=== PATIENT | female | born 1985 | race Caucasian/White ===

== ENCOUNTER → 2018-11-28 13:24 | Outpatient (CLI) | payer OTHER, SELFPAY ==
[2018-11-28 14:31] LABS: Basophils % 0.4 % (0.1-2.0); Eosinophils # 0.1 K/mm3 (0.0-0.4); Eosinophils % 1.3 % (0.1-12.0); Hematocrit 39.3 % (37.0-47.0); Lymphocytes # 2.6 K/mm3 (0.7-4.5); Lymphocytes % 25.9 % (10-50); Mean Corpuscular HGB Conc 30.5 g/dL (31.8-35.4); Mean Corpuscular Hemoglobin 25.5 pg (27.0-31.2); Mean Corpuscular Volume 83.7 fl (81-99); Mean Platelet Volume 9.4 fl (7.4-10.4); Monocytes # 0.5 K/mm3 (0.1-1.0); Monocytes % 5.3 % (1.7-9.3); Neutrophils # 6.8 K/mm3 (1.8-7.8); Neutrophils % 67.1 % (37.0-80.0); Platelet Count 364 K/mm3 (142-424); Red Blood Count 4.69 M/mm3 (4.20-5.40); Red Cell Distribution Width 15.2 % (11.5-17.5); White Blood Count 10.2 K/mm3 (4.8-10.8)
[2018-11-28 14:38] LABS: Alanine Aminotransferase 16 U/L (12-78); Albumin Level 3.5 gm/dL (3.4-5.0); Albumin/Globulin Ratio 0.9 (1.1-1.8); Alkaline Phosphatase 61 U/L (46-116); Anion Gap 13.6 mEq/L (5-15); Aspartate Amino Transferase 9 U/L (15-37); Bilirubin,Total 0.4 mg/dL (0.2-1.0); Blood Urea Nitrogen 12 mg/dL (7-18); Calcium 8.9 mg/dL (8.5-10.1); Carbon Dioxide 26 mmol/L (21.0-32.0); Chloride 104 mmol/L (98-107); Cholesterol 147 mg/dL (140-200); Estimated Glomerular Filt Rate 97 ml/min (>60); Free T4 (Free Thyroxine) 0.81 ng/dl (0.76-1.46); GFR (African American) 117 ML/MIN (>60); Glucose 85 mg/dL (74-106); HDL Cholesterol 49 mg/dL (29-89); LDL Cholesterol 70 mg/dL (0-130); Potassium 4.6 mmoL/L (3.5-5.1); Sodium 139 mmol/L (136-145); Thyroid Stimulating Hormone 3.21 uIU/ml (0.358-3.740); Total Protein,Serum 7.5 gm/dL (6.4-8.2); Triglycerides 140 mg/dL (30-200); VLDL Cholesterol 28 mg/dL (0-40)
== END ==
PROVIDERS: Visit Provider Emergency Medicine
DX: E66.9 Obesity, unspecified (principal); E04.9 Nontoxic goiter, unspecified
CPT/HCPCS: 80053; 80061; 84439; 84443; 85025

== ENCOUNTER → 2018-12-05 13:39 | Outpatient (CLI) | payer OTHER, SELFPAY ==
--- NOTE | 2018-12-05 13:56 | US_ITS ---
PROCEDURE: US THYROID CLINICAL INDICATION: enlarged thyroid Enlarged thyroid gland, weight gain, fatigue COMPARISON: No exams were available for comparison FINDINGS: The isthmus is thickened at 13 mm. There is diffuse heterogeneous enlargement of the thyroid gland. The right lobe is 6.7 x 4.2 x 2.5 cm. A hyperechoic nodules present in the mid aspect of the right lobe at 4 mm. And 11 mm isoechoic nodules present in the lower pole. Left lobe is 6.6 x 2.7 x 2.8 cm. A slightly hyperechoic nodules present in the upper pole at 14 mm. An additional slightly hyperechoic well-circumscribed nodules present in the midpole at 15 mm. Increased blood flow is noted within the thyroid gland. IMPRESSION: Thyromegaly with bilateral thyroid nodules as described above which are low level of suspicion for malignancy. The largest nodule 15 mm. Suggest 6 month follow-up. Dictated by: Evan Mendoza MD 12/06/2018 09:58 Electronically signed by Evan Mendoza MD in [place] 12/06/2018 09:58
== END ==
PROVIDERS: PCP Emergency Medicine; Visit Provider Emergency Medicine
DX: E04.9 Nontoxic goiter, unspecified (principal)
CPT/HCPCS: 76536

== ENCOUNTER → 2019-06-26 13:02 | Outpatient (CLI) | payer BC, SELFPAY ==
--- NOTE | 2019-06-26 13:03 | US_ITS ---
PROCEDURE: US THYROID CLINICAL INDICATION: 6 mth f/u Follow-up thyroid nodules COMPARISON: US THYROID from 12/05/2018 FINDINGS: Right lobe: 8.8 x 2.7 x 4.2 cm. Diffuse heterogeneous echogenicity with multinodular configuration. The nodules are coalescent and difficult to measure individually. At least 1 nodule which is hyperechoic measures 1.6 by 0.9 cm probably not significantly changed previously at 1.5 x 0.9 cm. Left lobe: 7 x 3 x 3.5 cm. Heterogeneous echogenicity with multinodular configuration with coalescent nodules difficult to measure. At least 1 hyperechoic nodule is noted measuring 1.7 x 1.3 cm previously 1.6 x 1.2 cm probably not significantly changed. Isthmus: The isthmus is thickened with 2 nodules at 7 and 6 mm. The isthmus measures up to 16 mm in thickness Additional findings: IMPRESSION: Multinodular goiter as detailed above probably overall not significantly changed. Continued follow-up suggested Dictated by: Evan Mendoza MD 06/26/2019 15:12 Electronically signed by Evan eMndoza MD in [place] 06/26/2019 15:12
== END ==
PROVIDERS: PCP Emergency Medicine; Visit Provider Emergency Medicine
DX: E04.1 Nontoxic single thyroid nodule (principal)
CPT/HCPCS: 76536

== ENCOUNTER → 2019-07-30 17:06 | Outpatient (CLI) | payer BC, MEDICAID, SELFPAY ==
[2019-07-30 17:51] LABS: Basophils % 0.3 % (0.1-2.0); Eosinophils # 0.1 K/mm3 (0.0-0.4); Eosinophils % 0.5 % (0.1-12.0); Hematocrit 37.2 % (37.0-47.0); Hemoglobin 11.9 g/dL (12.2-16.2); Lymphocytes # 2.1 K/mm3 (0.7-4.5); Lymphocytes % 18.6 % (10-50); Mean Corpuscular HGB Conc 31.9 g/dL (31.8-35.4); Mean Corpuscular Hemoglobin 25.9 pg (27.0-31.2); Mean Corpuscular Volume 81.2 fl (81-99); Mean Platelet Volume 7.5 fl (7.4-10.4); Monocytes # 0.4 K/mm3 (0.1-1.0); Monocytes % 3.6 % (1.7-9.3); Neutrophils # 8.8 K/mm3 (1.8-7.8); Neutrophils % 76.9 % (37.0-80.0); Platelet Count 364 K/mm3 (142-424); Red Blood Count 4.58 M/mm3 (4.20-5.40); Red Cell Distribution Width 15.3 % (11.5-17.5); White Blood Count 11.5 K/mm3 (4.8-10.8)
[2019-07-30 18:55] LABS: Amphetamine/Metha Screen,Urine Negative ng/ml (<1000)
[2019-07-30 18:56] LABS: Barbiturates Screen,Urine Negative ng/ml (<200); Benzodiazepines Screen,Urine Negative ng/ml (<200)
[2019-07-30 18:57] LABS: Cannabinoid Screen,Urine Negative ng/ml (<50)
[2019-07-30 18:58] LABS: Cocaine Screen,Urine Negative ng/ml (<300); Methadone Screen,Urine Negative ng/ml (<300)
[2019-07-30 18:59] LABS: Opiate Screen,Urine Negative ng/ml (<300)
[2019-07-30 19:00] LABS: Phencyclidine Screen,Urine Negative ng/ml (<25)
[2019-07-30 20:08] LABS: Thyroid Stimulating Hormone 3.83 uIU/mL (0.465-4.68)
[2019-08-01 08:42] LABS: Hepatitis B Surface Antigen Negative (Negative); Hepatitis C Antibody 0.1 s/co ratio (0.0-0.9); Rapid Plasma Reagin Ab Titer Non Reactive (NonRea<1:1); Rubella Antibodies, IgG 2.77 index (Immune >0.99)
[2019-08-01 10:21] LABS: HIV Screen 4th Generation wRfx Non Reactive (Non Reactive)
== END ==
PROVIDERS: Visit Provider Obstetrics & Gynecology
DX: Z34.90 Encounter for supervision of normal pregnancy, unspecified, unspecified trimester (principal)
CPT/HCPCS: 36415; 80305; 84443; 85025; 86592; 86703; 86762; 86850; 87340; 87380; G0432

== ENCOUNTER → 2019-07-31 14:25 | Outpatient (CLI) | payer BC, MEDICAID, SELFPAY ==
[2019-07-31 10:28] LABS: HCG,Quantitative 19532 mIU/ml (0-5.42)
[2019-07-31 14:44] LABS: Barbiturates Screen,Urine Negative ng/ml (<200)
[2019-07-31 14:45] LABS: Benzodiazepines Screen,Urine Negative ng/ml (<200)
[2019-07-31 14:46] LABS: Amphetamine/Metha Screen,Urine Negative ng/ml (<1000); Methadone Screen,Urine Negative ng/ml (<300)
[2019-07-31 14:47] LABS: Cannabinoid Screen,Urine Negative ng/ml (<50)
[2019-07-31 14:48] LABS: Cocaine Screen,Urine Negative ng/ml (<300); Opiate Screen,Urine Negative ng/ml (<300)
[2019-07-31 14:49] LABS: Phencyclidine Screen,Urine Negative ng/ml (<25)
== END ==
PROVIDERS: Visit Provider Obstetrics & Gynecology
DX: Z34.90 Encounter for supervision of normal pregnancy, unspecified, unspecified trimester (principal)
CPT/HCPCS: 80305; 84702

== ENCOUNTER → 2019-08-03 08:43 | Outpatient (CLI) | payer BC, MEDICAID, SELFPAY ==
--- NOTE | 2019-08-03 08:44 | US_ITS ---
PROCEDURE: US OB <= 14 WEEKS FETUS CLINICAL INDICATION: size and dates COMPARISON: No exams were available for comparison FINDINGS: An intrauterine gestational sac is present with a pole with a crown-rump length of 0.53cm correlating to gestational age of 6weeks 3days. heart tones are present with an FHR of 134bpm. Yolk sac is noted. 2 cm left ovarian cyst suggesting corpus luteum cyst IMPRESSION: Live IUP at 6 weeks 3 days Estimated due date by Ultrasound is 03/25/2020 Dictated by: Evan Mendoza MD 08/03/2019 10:04 Electronically signed by Evan Mendoza MD in [place] 08/03/2019 10:04
== END ==
PROVIDERS: PCP Emergency Medicine; Visit Provider Obstetrics & Gynecology
DX: Z34.90 Encounter for supervision of normal pregnancy, unspecified, unspecified trimester (principal)
CPT/HCPCS: 76801

== ENCOUNTER → 2019-11-06 12:41 | Outpatient (CLI) | payer MEDICAID, SELFPAY ==
--- NOTE | 2019-11-06 12:42 | US_ITS ---
PROCEDURE: US OB /MATERNAL DETAIL CLINICAL INDICATION: US OB Complete Anatomy exam COMPARISON: US US OB <= 14 WEEKS FETUS from 08/03/2019 FINDINGS: There is a single live fetus present which is in breech presentation. Cervix is closed measuring 5.7 cm transabdominal. The placenta is anterior and grade 1. Complete survey performed and was unremarkable on the submitted images as in PACS. No discrete anomalies identified on survey imaging by technologist. Active fetus. Three-vessel cord with satisfactory umbilical cord insertion. 4- chamber heart noted. Nonspecific hyperechoic focus noted within left ventricle Survey of brain & ventricles Unremarkable. Face and neck survey unremarkable. Diaphragm and chest views unremarkable. Abdomen: Both kidneys noted and unremarkable. Stomach noted and satisfactory. Spine: Survey of the spine satisfactory with no anomalies identified nor imaged. Both arms and legs noted. Amniotic Fluid: Adequate. Maternal adnexa: No significant findings. Measurements: Average ultrasound age 20weeks. Gestational Age 20 weeks Estimated due date by ultrasound age 0103/25/2020. Estimated weight 322g BPD = 20weeks OFD = 20weeks 6days HC = 19weeks 6days AC = 20weeks FL = 20weeks Growth Percentile= 41Percent% Heart Rate = 161bpm Cerebellum = 20weeks Humerus = 20weeks 1day HC/AC is 1.18 CI is 0.74 FL/BPD is 0.69 FL/AC is 0.22 IMPRESSION: Live IUP in breech presentation with an average ultrasound age of 20 weeks. All parameters correlate. Echogenic intracardiac focus which may represent a normal variant. Follow-up may confirm resolution. Dictated by: Evan Mendoza MD 11/08/2019 08:34 Evan Mendoza MD in [place] 11/08/2019 08:34
== END ==
PROVIDERS: PCP Emergency Medicine; Visit Provider Obstetrics & Gynecology
DX: Z36.0 Encounter for antenatal screening for chromosomal anomalies (principal)
CPT/HCPCS: 76811

== ENCOUNTER 2019-12-09 18:10 | Emergency (ER) | payer MEDICAID, SELFPAY ==
[2019-12-09 18:11] VITALS: BP 133/72; PULSE 85; RESP 18; TEMP 36.6; O2SAT 97; BMI 36.0
--- NOTE | 2019-12-09 18:37 | PC.NURSE ---
heart tones was 153
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
--- NOTE | 2019-12-09 19:13 | PC.NURSE ---
Called report to Nelida in OB
[2019-12-09 19:14] VITALS: BP 112/75; PULSE 65; RESP 15; TEMP 36.7; O2SAT 98
== END 2019-12-09 19:23 | disposition still patient (30) ==
PROVIDERS: Emergency Provider Emergency Medicine; PCP Emergency Medicine
DX: R10.30 Lower abdominal pain, unspecified (principal); Z3A.24 24 weeks gestation of pregnancy; V43.52XA Car driver injured in collision with other type car in traffic accident, initial encounter; Y92.414 Local residential or business street as the place of occurrence of the external cause; Z88.0 Allergy status to penicillin
CPT/HCPCS: 99281; 99282

== ENCOUNTER 2019-12-09 19:20 | Outpatient (CLI) | payer MEDICAID, SELFPAY ==
[2019-12-09 19:29] VITALS: BMI 37.4
[2019-12-09 19:49] VITALS: BP 131/67; PULSE 78; RESP 18; O2SAT 98; BMI 37.4
[2019-12-09 19:52] LABS: Microscopic, Urine URINE MICROSCOPIC (MICROSCOPIC)
[2019-12-09 19:54] LABS: Appearance,Urine CLEAR (Clear); Bilirubin,Urine Negative (Negative); Blood, Urine Negative (Negative); Color,Urine YELLOW (Yellow); Glucose,Urine (UA) Negative (Negative); Ketones,Urine Negative (Negative); Leukocyte Esterase,Urine Negative (Negative); Nitrate,Urine Negative (Negative); Protein,Urine Negative (Negative); Specific Gravity, Urine <= 1.005 (1.005-1.030); Urobilinogen,Urine 0.2 EU/dl (0.2)
[2019-12-09 20:05] LABS: Barbiturates Screen,Urine Negative ng/ml (<200); Benzodiazepines Screen,Urine Negative ng/ml (<200)
[2019-12-09 20:06] LABS: Amphetamine/Metha Screen,Urine Negative ng/ml (<1000)
[2019-12-09 20:07] LABS: Bacteria,Urine Trace /lpf; Cannabinoid Screen,Urine Negative ng/ml (<50); Methadone Screen,Urine Negative ng/ml (<300)
[2019-12-09 20:08] LABS: Cocaine Screen,Urine Negative ng/ml (<300)
[2019-12-09 20:09] LABS: Opiate Screen,Urine Negative ng/ml (<300); Phencyclidine Screen,Urine Negative ng/ml (<25)
== END 2019-12-09 22:10 | disposition home or self-care (01) ==
LOC: OBOUT 19:22 → OB 19:22
PROVIDERS: PCP Emergency Medicine; Visit Provider Nurse Practitioner Obstetrics & Gynecology
DX: O47.02 False labor before 37 completed weeks of gestation, second trimester (principal); Z3A.24 24 weeks gestation of pregnancy; V89.2XXA Person injured in unspecified motor-vehicle accident, traffic, initial encounter
CPT/HCPCS: 59025; 80305; 81001; 87086; G0463

== ENCOUNTER → 2019-12-14 07:37 | Outpatient (CLI) | payer MEDICAID, SELFPAY ==
[2019-12-14 09:08] LABS: Glucose,Fasting 104 mg/dl (74-100)
[2019-12-14 09:35] LABS: Glucose 1 Hour 180 mg/dL (74-100)
== END ==
PROVIDERS: Visit Provider Obstetrics & Gynecology
DX: Z34.90 Encounter for supervision of normal pregnancy, unspecified, unspecified trimester (principal)
CPT/HCPCS: 36415; 82951

== ENCOUNTER → 2019-12-22 07:32 | Outpatient (CLI) | payer MEDICAID, SELFPAY ==
[2019-12-22 08:20] LABS: Glucose,Fasting 101 mg/dl (74-100)
[2019-12-22 09:46] LABS: Glucose 1 Hour 128 mg/dL (74-100)
[2019-12-22 10:36] LABS: Glucose 2 Hour 98 mg/dL (74-100)
[2019-12-22 11:54] LABS: Glucose 3 Hour 72 mg/dL (74-100)
== END ==
PROVIDERS: Visit Provider Obstetrics & Gynecology
DX: Z34.90 Encounter for supervision of normal pregnancy, unspecified, unspecified trimester (principal)
CPT/HCPCS: 36415; 82951

== ENCOUNTER → 2020-01-01 12:52 | Outpatient (CLI) | payer MEDICAID, SELFPAY ==
--- NOTE | 2020-01-01 12:52 | US_ITS ---
PROCEDURE: US OB FOLLOW UP CLINICAL INDICATION: US OB f/u- echogenic cardiac focus COMPARISON: US US OB /MATERNAL DETAIL from 11/06/2019 FINDINGS: Single live fetus is present in cephalic presentation. heart and body motion noted. Average ultrasound age is 28 weeks 4 days. BPD 29 weeks 0 days, OFD 27 weeks 6 days, HC 28 weeks 0 days, AC 28 weeks 2 days, FL 28 weeks 4 days. Heart rate is 155 beats per minute. Placenta is anterior. Nonspecific echogenic cardiac focus once again noted. No obvious anomalies. IMPRESSION: Live IUP at 28 weeks 4 days. All parameters correlate. No change nonspecific echogenic cardiac focus. Dictated by: Evan Mendoza MD 01/01/2020 17:38 Evan Mendoza MD in [place] 01/01/2020 17:38
== END ==
PROVIDERS: PCP Emergency Medicine; Visit Provider Obstetrics & Gynecology
DX: O35.8XX0 Maternal care for other (suspected) fetal abnormality and damage, not applicable or unspecified (principal)
CPT/HCPCS: 76816

== ENCOUNTER 2020-01-05 10:22 | Outpatient (CLI) | payer MEDICAID, SELFPAY ==
[2020-01-05 12:05] VITALS: BP 116/78; PULSE 96; RESP 20; TEMP 36.4; O2SAT 96
== END 2020-01-05 12:25 | disposition home or self-care (01) ==
PROVIDERS: Visit Provider Obstetrics & Gynecology
DX: Z34.90 Encounter for supervision of normal pregnancy, unspecified, unspecified trimester (principal)
CPT/HCPCS: 36415; 96372; J2790

== ENCOUNTER 2020-01-26 10:40 | Outpatient (CLI) | payer MEDICAID, SELFPAY ==
[2020-01-26 10:40] VITALS: BP 120/71; PULSE 84; RESP 20; TEMP 36.8; O2SAT 95; BMI 36.9
[2020-01-26 11:08] VITALS: BMI 36.9
[2020-01-26 11:27] LABS: Eosinophils # 0.1 K/mm3 (0.0-0.4); Eosinophils % 0.4 % (0.1-12.0); Hematocrit 35.8 % (37.0-47.0); Hemoglobin 11.5 g/dL (12.2-16.2); Lymphocytes # 1.9 K/mm3 (0.7-4.5); Lymphocytes % 13.2 % (10-50); Mean Corpuscular HGB Conc 32.2 g/dL (31.8-35.4); Mean Corpuscular Hemoglobin 27.3 pg (27.0-31.2); Mean Corpuscular Volume 84.6 fl (81-99); Mean Platelet Volume 8.1 fl (7.4-10.4); Monocytes # 0.5 K/mm3 (0.1-1.0); Monocytes % 3.7 % (1.7-9.3); Neutrophils % 82.7 % (37.0-80.0); Platelet Count 288 K/mm3 (142-424); Red Blood Count 4.23 M/mm3 (4.20-5.40); Red Cell Distribution Width 15.6 % (11.5-17.5); White Blood Count 14.5 K/mm3 (4.8-10.8)
[2020-01-26 11:30] VITALS: BP 131/69; PULSE 88; RESP 18; O2SAT 95
[2020-01-26 11:36] LABS: Chloride 103 mmol/L (98-107); Potassium 3.9 mmoL/L (3.5-5.1); Sodium 131 mmol/L (136-145)
[2020-01-26 11:38] LABS: Alanine Aminotransferase 15 U/L (12-78); Aspartate Amino Transferase 18 U/L (14-36); Blood Urea Nitrogen 11 mg/dl (7-17); Creatinine Clearance Estimated 225 mL/min (50-200); Estimated Glomerular Filt Rate 115 ml/min (>60); GFR (African American) 139 ML/MIN (>60)
[2020-01-26 11:39] LABS: Albumin Level 3.1 g/dl (3.5-5.0); Alkaline Phosphatase 106 U/L (38-126); Anion Gap 11.9 mEq/L (5-15); Bilirubin,Total 0.3 mg/dl (0.2-1.3); Calcium 8.6 mg/dl (8.4-10.2); Carbon Dioxide 20 mmol/L (22.0-30.0); Glucose 127 mg/dl (74-100); Total Protein,Serum 6.1 g/dl (6.3-8.2)
[2020-01-26 11:46] VITALS: BP 123/69; PULSE 82; RESP 18; O2SAT 96
== END 2020-01-26 12:02 | disposition home or self-care (01) ==
LOC: OBOUT 10:42 → OB 10:43 → OBOUT 10:45 → OB 11:05
PROVIDERS: PCP Obstetrics & Gynecology; Visit Provider Obstetrics & Gynecology
DX: O26.893 Other specified pregnancy related conditions, third trimester (principal); Z3A.31 31 weeks gestation of pregnancy; R42 Dizziness and giddiness; R55 Syncope and collapse
CPT/HCPCS: 59025; 80053; 85025; 96365; G0463

== ENCOUNTER 2020-02-04 16:29 | Outpatient (CLI) | payer MEDICAID, SELFPAY ==
[2020-02-04 16:41] VITALS: BMI 40.4
[2020-02-04 17:31] LABS: Appearance,Urine CLEAR (Clear); Bilirubin,Urine Negative (Negative); Blood, Urine Negative (Negative); Color,Urine YELLOW (Yellow); Glucose,Urine (UA) Negative (Negative); Ketones,Urine TRACE (Negative); Leukocyte Esterase,Urine TRACE (Negative); Microscopic, Urine URINE MICROSCOPIC (MICROSCOPIC); Nitrate,Urine Negative (Negative); Protein,Urine Negative (Negative); Specific Gravity, Urine 1.025 (1.005-1.030); Urobilinogen,Urine 0.2 EU/dl (0.2)
[2020-02-04 17:36] LABS: Chloride 103 mmol/L (98-107); Sodium 132 mmol/L (136-145)
[2020-02-04 17:37] VITALS: BMI 37.4
[2020-02-04 17:39] LABS: Alanine Aminotransferase 12 U/L (12-78); Albumin Level 3.3 g/dl (3.5-5.0); Albumin/Globulin Ratio 1.1 (1.1-1.8); Alkaline Phosphatase 121 U/L (38-126); Aspartate Amino Transferase 18 U/L (14-36); Bilirubin,Total 0.3 mg/dl (0.2-1.3); Blood Urea Nitrogen 13 mg/dl (7-17); Calcium 8.8 mg/dl (8.4-10.2); Carbon Dioxide 22 mmol/L (22.0-30.0); Creatinine Clearance Estimated 278 mL/min (50-200); Estimated Glomerular Filt Rate 142 ml/min (>60); GFR (African American) 172 ML/MIN (>60); Glucose 89 mg/dl (74-100); Total Protein,Serum 6.3 g/dl (6.3-8.2)
[2020-02-04 17:43] VITALS: BP 163/95; PULSE 78; RESP 20; TEMP 36.8
[2020-02-04 17:43] LABS: Amphetamine/Metha Screen,Urine Negative ng/ml (<1000); Benzodiazepines Screen,Urine Negative ng/ml (<200)
[2020-02-04 17:44] LABS: Basophils % 0.1 % (0.1-2.0); Eosinophils % 0.3 % (0.1-12.0); Hematocrit 32.8 % (37.0-47.0); Hemoglobin 10.6 g/dL (12.2-16.2); Lymphocytes # 1.9 K/mm3 (0.7-4.5); Mean Corpuscular HGB Conc 32.3 g/dL (31.8-35.4); Mean Corpuscular Volume 83.5 fl (81-99); Mean Platelet Volume 8.6 fl (7.4-10.4); Monocytes # 0.6 K/mm3 (0.1-1.0); Monocytes % 3.8 % (1.7-9.3); Neutrophils # 12.9 K/mm3 (1.8-7.8); Neutrophils % 83.9 % (37.0-80.0); Platelet Count 272 K/mm3 (142-424); Red Blood Count 3.93 M/mm3 (4.20-5.40); Red Cell Distribution Width 15.6 % (11.5-17.5); White Blood Count 15.4 K/mm3 (4.8-10.8)
[2020-02-04 17:44] LABS: Barbiturates Screen,Urine Negative ng/ml (<200)
[2020-02-04 17:45] LABS: Cannabinoid Screen,Urine Negative ng/ml (<50)
[2020-02-04 17:46] LABS: Amorphous Sediment,Urine 1+ /lpf; Bacteria,Urine 1+ /lpf; Cocaine Screen,Urine Negative ng/ml (<300); Methadone Screen,Urine Negative ng/ml (<300)
[2020-02-04 17:47] LABS: Opiate Screen,Urine Negative ng/ml (<300)
[2020-02-04 17:47] LABS: MANUAL DIFFERENTIAL MANUAL DIFFERENTIAL (MANUAL DIFF)
[2020-02-04 17:48] LABS: Phencyclidine Screen,Urine Negative ng/ml (<25)
[2020-02-04 17:55] LABS: Coronavirus 19 IgG Antibody Negative (Negative); Coronavirus 19 IgM Antibody Negative (Negative)
[2020-02-04 18:07] LABS: Eosinophils % 2 % (0-3); Lymphocytes % 19 % (10-50); Monocytes % 3 % (2-9); Neutrophils % 76 % (42-76); Platelet Estimate Normal; RBC Morphology Normal; Total Cells Counted 100
[2020-02-04 18:23] LABS: Fetal Fibronectin (Rapid) Positive (Negative)
== END 2020-02-04 19:42 | disposition home or self-care (01) ==
LOC: OBOUT 16:31 → OB 16:32
PROVIDERS: PCP Obstetrics & Gynecology; Visit Provider Obstetrics & Gynecology
DX: Z03.818 Encounter for observation for suspected exposure to other biological agents ruled out; O21.2 Late vomiting of pregnancy; Z3A.32 32 weeks gestation of pregnancy; R19.7 Diarrhea, unspecified; O60.03 Preterm labor without delivery, third trimester
CPT/HCPCS: 36415; 59025; 80053; 80305; 81001; 82731; 85007; 85025; 86328; 87086; 96365; 96366; G0463; J2405

== ENCOUNTER 2020-03-01 06:05 | Outpatient (CLI) | payer MEDICAID, SELFPAY ==
[2020-03-01 06:11] VITALS: BMI 38.5
[2020-03-01 06:14] VITALS: BP 140/87; PULSE 89; RESP 18; TEMP 36.7; O2SAT 95; BMI 38.5
[2020-03-01 06:52] LABS: Amphetamine/Metha Screen,Urine Negative ng/ml (<1000)
[2020-03-01 06:53] LABS: Barbiturates Screen,Urine Negative ng/ml (<200); Benzodiazepines Screen,Urine Negative ng/ml (<200)
[2020-03-01 06:54] LABS: Cannabinoid Screen,Urine Negative ng/ml (<50); Cocaine Screen,Urine Negative ng/ml (<300)
[2020-03-01 06:55] LABS: Methadone Screen,Urine Negative ng/ml (<300)
[2020-03-01 06:57] LABS: Opiate Screen,Urine Negative ng/ml (<300)
[2020-03-01 06:58] LABS: Phencyclidine Screen,Urine Negative ng/ml (<25)
== END 2020-03-01 08:13 | disposition home or self-care (01) ==
LOC: OBOUT 06:07 → OB 06:11
PROVIDERS: PCP Emergency Medicine; Visit Provider Obstetrics & Gynecology
DX: O47.03 False labor before 37 completed weeks of gestation, third trimester (principal); Z3A.36 36 weeks gestation of pregnancy
CPT/HCPCS: 59025; 80305; 96360; 96365

== ENCOUNTER → 2020-03-01 12:33 | Outpatient (CLI) | payer MEDICAID, SELFPAY | PROVIDERS: Visit Provider Obstetrics & Gynecology | DX: Z34.90 Encounter for supervision of normal pregnancy, unspecified, unspecified trimester (principal) | CPT/HCPCS: 86403 ==

== ENCOUNTER 2020-03-07 21:02 | Outpatient (CLI) | payer MEDICAID, SELFPAY ==
[2020-03-07 21:08] VITALS: BP 129/79; PULSE 90; RESP 18; TEMP 36.8; O2SAT 96
[2020-03-07 21:15] VITALS: BMI 39.4
[2020-03-07 21:31] LABS: Microscopic, Urine URINE MICROSCOPIC (MICROSCOPIC)
[2020-03-07 21:32] VITALS: BP 129/79; PULSE 90; RESP 18; TEMP 36.8; O2SAT 96; BMI 39.4
[2020-03-07 21:40] LABS: Appearance,Urine CLEAR (Clear); Bilirubin,Urine Negative (Negative); Blood, Urine Negative (Negative); Color,Urine YELLOW (Yellow); Glucose,Urine (UA) Negative (Negative); Ketones,Urine Negative (Negative); Leukocyte Esterase,Urine Negative (Negative); Nitrate,Urine Negative (Negative); Protein,Urine Negative (Negative); Urobilinogen,Urine 0.2 EU/dl (0.2)
[2020-03-07 21:50] LABS: Fetal Membrane Rupture (Rapid) Negative (Negative)
[2020-03-07 21:51] LABS: Bacteria,Urine Trace /lpf; WBC,Urine Occasional #/hpf (0-3)
[2020-03-07 21:53] LABS: Barbiturates Screen,Urine Negative ng/ml (<200)
[2020-03-07 21:54] LABS: Benzodiazepines Screen,Urine Negative ng/ml (<200); Cannabinoid Screen,Urine Negative ng/ml (<50)
[2020-03-07 21:55] LABS: Cocaine Screen,Urine Negative ng/ml (<300); Methadone Screen,Urine Negative ng/ml (<300)
[2020-03-07 21:56] LABS: Opiate Screen,Urine Negative ng/ml (<300)
[2020-03-07 21:57] LABS: Phencyclidine Screen,Urine Negative ng/ml (<25)
[2020-03-07 22:01] LABS: Amphetamine/Metha Screen,Urine Negative ng/ml (<1000)
== END 2020-03-07 21:54 | disposition home or self-care (01) ==
LOC: OBOUT 21:03 → OB 21:06
PROVIDERS: Nurse Practitioner Obstetrics & Gynecology; PCP Emergency Medicine; Visit Provider Obstetrics & Gynecology
DX: O60.03 Preterm labor without delivery, third trimester (principal); Z3A.37 37 weeks gestation of pregnancy
CPT/HCPCS: 59025; 80305; 81001; 84112; G0463

== ENCOUNTER 2020-03-09 00:04 | Outpatient (CLI) | payer MEDICAID, SELFPAY ==
[2020-03-09 00:20] VITALS: BP 142/91; PULSE 80; RESP 18; TEMP 36.9; O2SAT 97; BMI 39.4
[2020-03-09 00:35] LABS: Microscopic, Urine URINE MICROSCOPIC (MICROSCOPIC)
[2020-03-09 00:43] LABS: Appearance,Urine CLEAR (Clear); Bilirubin,Urine Negative (Negative); Blood, Urine Negative (Negative); Color,Urine YELLOW (Yellow); Glucose,Urine (UA) Negative (Negative); Ketones,Urine Negative (Negative); Leukocyte Esterase,Urine Negative (Negative); Nitrate,Urine Negative (Negative); Protein,Urine Negative (Negative); Specific Gravity, Urine <= 1.005 (1.005-1.030); Urobilinogen,Urine 0.2 EU/dl (0.2)
[2020-03-09 01:00] LABS: Bacteria,Urine Trace /lpf; WBC,Urine Occasional #/hpf (0-3)
[2020-03-09 01:31] LABS: Benzodiazepines Screen,Urine Negative ng/ml (<200)
[2020-03-09 01:32] LABS: Amphetamine/Metha Screen,Urine Negative ng/ml (<1000); Barbiturates Screen,Urine Negative ng/ml (<200)
[2020-03-09 01:33] LABS: Cannabinoid Screen,Urine Negative ng/ml (<50)
[2020-03-09 01:34] LABS: Cocaine Screen,Urine Negative ng/ml (<300)
[2020-03-09 01:44] LABS: Opiate Screen,Urine Negative ng/ml (<300); Phencyclidine Screen,Urine Negative ng/ml (<25)
[2020-03-09 01:49] LABS: Methadone Screen,Urine Negative ng/ml (<300)
== END 2020-03-09 01:38 | disposition home or self-care (01) ==
LOC: OBOUT 00:09 → OB 00:14
PROVIDERS: PCP Emergency Medicine; Referring Provider Obstetrics & Gynecology; Visit Provider Obstetrics & Gynecology
DX: O60.03 Preterm labor without delivery, third trimester (principal); Z3A.37 37 weeks gestation of pregnancy
CPT/HCPCS: 59025; 80305; 81001; G0463

== ENCOUNTER 2020-03-13 01:19 | Outpatient (CLI) | payer MEDICAID, SELFPAY ==
[2020-03-13 02:00] VITALS: BMI 39.4
[2020-03-13 02:08] LABS: Microscopic, Urine URINE MICROSCOPIC (MICROSCOPIC)
[2020-03-13 02:11] LABS: Appearance,Urine CLEAR (Clear); Bilirubin,Urine Negative (Negative); Blood, Urine Negative (Negative); Color,Urine YELLOW (Yellow); Glucose,Urine (UA) Negative (Negative); Ketones,Urine Negative (Negative); Leukocyte Esterase,Urine Negative (Negative); Nitrate,Urine Negative (Negative); PH,Urine 6.5 (5.0-8.5); Protein,Urine Negative (Negative); Specific Gravity, Urine 1.015 (1.005-1.030); Urobilinogen,Urine 0.2 EU/dl (0.2)
[2020-03-13 02:14] LABS: Amorphous Sediment,Urine Trace /lpf
[2020-03-13 02:23] LABS: Amphetamine/Metha Screen,Urine Negative ng/ml (<1000)
[2020-03-13 02:24] LABS: Barbiturates Screen,Urine Negative ng/ml (<200); Benzodiazepines Screen,Urine Negative ng/ml (<200)
[2020-03-13 02:25] LABS: Cannabinoid Screen,Urine Negative ng/ml (<50); Cocaine Screen,Urine Negative ng/ml (<300)
[2020-03-13 02:26] LABS: Methadone Screen,Urine Negative ng/ml (<300)
[2020-03-13 02:27] LABS: Opiate Screen,Urine Negative ng/ml (<300); Phencyclidine Screen,Urine Negative ng/ml (<25)
[2020-03-13 02:29] VITALS: BMI 39.4
[2020-03-13 02:49] VITALS: BP 145/85; PULSE 74; RESP 20; TEMP 36.5
[2020-03-13 08:00] VITALS: BP 131/77; PULSE 72; RESP 20; TEMP 36.8; O2SAT 95
== END 2020-03-13 08:19 | disposition home or self-care (01) ==
LOC: OBOUT 01:21 → OB 01:24
PROVIDERS: PCP Emergency Medicine; Visit Provider Obstetrics & Gynecology
DX: O60.03 Preterm labor without delivery, third trimester (principal); Z3A.38 38 weeks gestation of pregnancy
CPT/HCPCS: 59025; 80305; 81001; 96365; 96372; G0463; J0595

== ENCOUNTER 2020-03-13 11:21 | Inpatient (IN) | payer MEDICAID, SELFPAY ==
[2020-03-13 10:29] VITALS: BP 136/95; PULSE 80; RESP 18; TEMP 36.6; O2SAT 99; BMI 39.4
[2020-03-13 11:08] LABS: Cord Blood PH 7.25 (7.35-7.45)
--- NOTE | 2020-03-13 11:11 | HMH.OBAPHP ---
OB - H&P: HPI Antepartum - History of Present Illness Chief complaint: Contractions, active labor History of present illness: She is a 34-year-old 2 para 1 at 38 weeks gestational age. She was seen overnight and had some contractions but they settled. She subsequently was sent home. She then arrived with vaginal bleeding and contractions. She was found to be fully dilated and station +3. She was taken to the delivery room and delivered a liveborn female child vaginally at 10:50 AM on the morning of March 13, 2020. On deliver the head the anterior shoulder and rest the 's body delivered rapidly. There was thin meconium behind the baby. The nasopharynx and oropharynx were bulb suctioned. The baby was vigorous. We allowed the cord to continue to pulsate for approximately 1 minute. The cord was then doubly clamped and cut and the was handed off to Dr. Hathaway who assigned Apgars of 8 at 1 minute and 9 at 5 minutes. We then obtained cord blood as well as cord pH. The pH is currently pending. She received IM oxytocin and using gentle traction the cord and countertraction on the fundus I was able to easily deliver the placenta intact. He had a normal three-vessel cord. She had a second-degree perineal laceration that was repaired with 3-0 Vicryl Rapide suture to the superficial tissues and 2-0 Vicryl suture to the deep tissues. She has a Rh- blood, she is rubella immune and was group B streptococcus negative. She plans to bottlefeed. Her estimated blood loss was approximately 500 cc. - History of Present Criteria for establishing EDC:: LMP confirmed by 1st trimester US care: good care Ultrasounds: normal 1st trimester US (With Ginette), normal mid trimester US ( she does get) Obstetrical complications: labor Medical complications: none (Check) - Labs Blood type: A (-) negative Rubella: immune RPR/VDRL: nonreactive GBS status: negative HBsAG: negative [facility] History I have reviewed the patient's past medical history: Yes *Have you ever received a pneumonia vaccine?: No *Have you received a flu vaccine this season?: No Other Surgeries: Yes: (BREECH), Hernia Repair Amputation: No Fractures: No - *Social History Smoking Status: Never smoker Alcohol Intake: never Alcohol Intake Frequency:: holidays/special occasions only Substance Use Type: denies use *Occupational Status:: other Housing: house Household Members: family *Travel in the last 8 weeks: None Family Hx:: Cancer, Heart Attack, Stroke, Hypertension, Hyperlipidemia, Thyroid Disorder, Substance abuse Review of Systems - Review of Systems Review of systems:: pertinent systems reviewed and negative unless documented below Meds Home Medications Medication Instructions Recorded Confirmed Type Vit Calc,Iron,Folic [Kpn] 1 tab PO DAILY 12/09/19 03/08/20 History Sertraline HCl [Zoloft] 100 mg PO DAILY 12/09/19 03/08/20 History doxylamine succinate 25 mg tablet 25 mg PO HS PRN 01/26/20 03/08/20 History Allergies Allergy/AdvReac Type Severity Reaction Status Date / Time amoxicillin [AMOXICILLIN] Allergy Mild Verified 03/08/20 10:42 Penicillins [PENICILLINS] Allergy Mild Verified 03/08/20 10:42 OB - H&P: Exam - Constitutional no acute distress - Routine HEENT Exam Head: Present: normocephalic Eye: Present: EOMI, PERRL ENT: Present: mucous membranes moist - Routine Neck Exam Present: supple, full ROM - Routine Respiratory Exam Absent: accessory muscle use (good air entry bilaterally), respiratory distress, wheezes, crackles - Routine Cardiovascular Exam Present: RRR. Absent: murmur - Routine Abdominal Exam Present: soft, normoactive bowel sounds. Absent: tenderness, distended, guarding - Routine Rectal Exam Patient deferred: visual exam, digital exam - Routine Exam Patient deferred: external exam, groin exam, perineal exam - Routine Extremities Exam Pre
--- NOTE | 2020-03-13 11:17 | HMH.DN ---
- Delivery Note Delivery Date:: 03/13/20 Delivery Time:: 10:50 Anesthesia Type: None Was labor medically induced?: No Induction method: none Gestational age (weeks): 38 delivered prior to 39 weeks?: Yes Justification for early elective delivery:: Active Labor Infant Gender: Female at 1 minute: 8 at 5 minutes: 9 LAC or MLE?: LAC Delivery Procedure:: She came in in active labor and was found to be fully dilated. She progressed rapidly to full dilation and delivered spontaneously a liveborn female child at 10:50 AM on the morning of March 13, 2020. On deliver the head the oropharynx and nasopharynx were bulb suction. The baby was vigorous. We allowed the cord to continue to pulsate for approximately 1 minute. The cord is then doubly clamped and cut and the infant was handed off to Dr. Hathaway who assigned Apgars of 8 at 1 and 9 at 5 minutes. We then obtained cord blood as well as cord pH. The pH currently pending. The patient then received IM oxytocin. Using gentle traction the cord and countertraction on the fundus I was able to easily deliver the placenta intact. He had a normal three-vessel cord. She had a second-degree perineal laceration that was repaired in the usual fashion with 3-0 Vicryl Rapide suture to the superficial tissues and 2-0 Vicryl suture to the deep tissues. She has a Rh- blood, she is rubella immune and was group B streptococcus negative. She plans to breast-feed. Estimated blood loss was approximately 500 cc. Laceration:: vaginal Placental Delivery Description: Spontaneous
[2020-03-13 11:33] VITALS: BMI 39.3
[2020-03-13 12:00] VITALS: BP 126/76; PULSE 78; RESP 20; TEMP 36.4; O2SAT 96
[2020-03-13 12:04] LABS: Eosinophils % 0.1 % (0.1-12.0); Hematocrit 34.7 % (37.0-47.0); Lymphocytes % 5.4 % (10-50); Mean Corpuscular HGB Conc 31.6 g/dL (31.8-35.4); Mean Corpuscular Hemoglobin 26.3 pg (27.0-31.2); Mean Platelet Volume 8.9 fl (7.4-10.4); Monocytes # 0.2 K/mm3 (0.1-1.0); Monocytes % 1.3 % (1.7-9.3); Neutrophils # 17.9 K/mm3 (1.8-7.8); Neutrophils % 93.2 % (37.0-80.0); Platelet Count 283 K/mm3 (142-424); Red Blood Count 4.18 M/mm3 (4.20-5.40); Red Cell Distribution Width 16.8 % (11.5-17.5); White Blood Count 19.2 K/mm3 (4.8-10.8)
[2020-03-13 12:06] LABS: MANUAL DIFFERENTIAL MANUAL DIFFERENTIAL (MANUAL DIFF)
[2020-03-13 12:11] LABS: Eosinophils % 1 % (0-3); Lymphocytes % 6 % (10-50); Monocytes % 2 % (2-9); Neutrophils % 89 % (42-76); Platelet Estimate Normal; RBC Morphology Normal; Total Cells Counted 100
[2020-03-13 12:22] LABS: Coronavirus 19 IgG Antibody Negative (Negative); Coronavirus 19 IgM Antibody Negative (Negative)
[2020-03-13 16:00] VITALS: BP 137/80; PULSE 70; RESP 18; TEMP 36.8; O2SAT 97
[2020-03-13 20:00] VITALS: BP 135/64; PULSE 76; RESP 18; TEMP 36.8; O2SAT 98
[2020-03-14 06:49] LABS: Hematocrit 26.8 % (37.0-47.0)
[2020-03-14 06:53] LABS: Hemoglobin 8.7 g/dL (12.2-16.2)
--- NOTE | 2020-03-14 07:24 | HMH.PHAINT ---
MEDICATION RECONCILIATION COMPLETED ON PATIENT USING EXTERNAL FILL HISTORY FROM PHARMACY. -CHELSEA MONTES, MANOLOD
[2020-03-14 08:00] VITALS: BP 130/72; PULSE 92; RESP 18; TEMP 36.7; O2SAT 96
--- NOTE | 2020-03-14 09:22 | P.PN_ITS ---
Internal Medicine - PN: Subj *Date: 03/14/20 *Time: 09:22 Interval history: She is doing well this morning. She is eating and drinking and ambulating. She is breast-feeding. Her lochia is normal. Exam Vital signs and Labs for Last 24 Hours: Temp Pulse Resp BP Pulse Ox 98.0 F 92 H 18 130/72 96 03/14/20 08:00 03/14/20 08:00 03/14/20 08:00 03/14/20 08:00 03/14/20 08:00 Laboratory Results - last 24 hr 03/13/20 11:05: Cord ABG pH 7.25 L 03/13/20 11:50: Blood Type A Negative, Antibody Screen Negative, Screen Negative, Baby's Rh Status Positive 03/13/20 11:50: WBC 19.2 H, RBC 4.18 L, Hgb 11.0 L, Hct 34.7 L, MCV 83.0, MCH 26.3 L, MCHC 31.6 L, RDW 16.8, Plt Count 283, MPV 8.9, Neut % (Auto) 93.2 H, Lymph % (Auto) 5.4 L, Mineral % (Auto) 1.3 L, Eos % (Auto) 0.1, Baso % (Auto) 0.0 L , Neut # (Auto) 17.9 H, Lymph # (Auto) 1.0, Mineral # (Auto) 0.2, Eos # (Auto) 0.0, Baso # (Auto) 0.0, Total Counted 100, Neutrophils % (Manual) 89 H, Band Neutrophils % 2.0, Lymphocytes % (Manual) 6 L, Monocytes % (Manual) 2, Eosinophils % (Manual) 1, Platelet Estimate Normal, RBC Morphology Normal 03/13/20 11:50: SARS-CoV-2 IgG Ab (Rapid) Negative, SARS-CoV-2 IgM Ab (Rapid) Negative 03/13/20 14:05: Rhogam Infusion Rhogam release 03/14/20 06:16: Hgb 8.7 L D, Hct 26.8 L I & O for Last 24 hours: Intake & Output 03/11/20 03/12/20 03/13/20 03/14/20 11:59 11:59 11:59 11:59 Weight 251 lb - Constitutional no acute distress - *Routine HEENT Exam Head: Present: normocephalic Eye: Present: EOMI, PERRL ENT: Present: mucous membranes moist Assessment and Plan (1) , delivered Status: Acute Category: Medical Code(s): O34.219 - Maternal care for unspecified type scar from previous delivery (2) Obesity, Class II, BMI 35-39.9, isolated Status: Acute Category: Medical Code(s): E66.9 - Obesity, unspecified (3) Rh negative status during Status: Acute Category: Medical Code(s): O26.899 - Other specified related conditions, unspecified trimester; Z67.91 - Unspecified blood type, Rh negative - Assessment and plan all Dx Assessment and Plan for all problems:: She continues to do well. She will be discharged home tomorrow.
[2020-03-14 12:00] VITALS: BP 136/69; PULSE 93; RESP 18; TEMP 36.7; O2SAT 98
[2020-03-14 16:00] VITALS: BP 121/67; PULSE 83; RESP 18; TEMP 36.7; O2SAT 98
[2020-03-14 20:00] VITALS: BP 129/80; PULSE 96; RESP 18; TEMP 36.9
--- NOTE | 2020-03-15 08:14 | HMH.OBDCSM ---
General - General Admission date:: 03/13/20 Discharge date: 03/15/20 HPI - History of Present Illness History of present illness: She is a 34-year-old 2 para 1 at 38 weeks gestational age. She came in in active labor and was found to be fully dilated. Hospital Course Hospital Course: She arrived in active labor and was fully dilated. She was actually scheduled for repeat section but since she was fully dilated and the head was close to the perineum elected to deliver her vaginally. She delivered a liveborn female child at 10:50 AM on the morning of March 13, 2020. The baby weighed 6 pounds 8 ounces and had Apgars of 8 at 1 minute and 9 at 5 minutes. She has done well and has remained afebrile throughout her hospitalization. She is eating and drinking and ambulating. She is breast-feeding. Her lochia is normal. She has a Rh- blood and she has received RhoGam. She is rubella immune and was group B streptococcus negative. Her registered public surveyor is Dr. Hathaway. She is discharged home to follow-up with me in approximately 2 weeks time. She will continue with her vitamins and iron. She was given the usual instructions with respect to limiting her activity, driving and sexual activity. Her condition on discharge is stable and improved. Rhogam Administration: Given Objective Vital signs: Temp Pulse Resp BP Pulse Ox 98.4 F 96 H 18 129/80 98 03/14/20 20:00 03/14/20 20:00 03/14/20 20:00 03/14/20 20:00 03/14/20 16:00 no acute distress - *Routine HEENT Exam Head: Present: normocephalic Eye: Present: EOMI, PERRL ENT: Present: mucous membranes moist DS: Diagnosis - Discharge Diagnosis (1) , delivered Status: Acute (2) Obesity, Class II, BMI 35-39.9, isolated Status: Acute (3) Rh negative status during Status: Acute Discharge Plan - Patient Discharge Instructions ACTIVITY: No heavy lifting DIET: continue same diet Additional Instructions: NOTHING IN VAGINA FOR 6 WEEKS NO HEAVY LIFTING OR STRENUOUS ACTIVITY FOLLOW-UP WITH DR. WHITTINGTON ON Patient Instructions: Depression, Hemorrhage, DI for Labor and Delivery, Vaginal , DI for Pre-eclampsia, Vaginal After Section, [facility] Post Discharge Instructions, Preventing the Spread of Coronavirus Discharge Instructions - Follow up Plan Disposition: Home, Self-Fci Medications: Home Medications Medication Instructions Recorded Confirmed Type Vit Calc,Iron,Folic [Kpn] 1 tab PO DAILY 12/09/19 03/14/20 History Sertraline HCl [Zoloft] 100 mg PO DAILY 12/09/19 03/14/20 History doxylamine succinate 25 mg tablet 25 mg PO HS PRN 01/26/20 03/14/20 History Prescriptions/Medication Reconciliation: Continued doxylamine succinate 25 mg tablet 25 mg PO HS PRN PRN Reason: Sleep Vit Calc,Iron,Folic [Kpn] 1 tab PO DAILY Sertraline HCl [Zoloft] 100 mg PO DAILY - Problem Reconciliation Problems Reviewed?: Yes
== END 2020-03-15 11:40 | disposition home or self-care (01) | DRG 807 ==
LOC: OB 11:23
PROVIDERS: Nurse Practitioner Obstetrics & Gynecology; Admitting Provider Obstetrics & Gynecology; PCP Emergency Medicine; Visit Provider Obstetrics & Gynecology
DX: O70.1 Second degree perineal laceration during delivery (principal); Z37.0 Single live birth; Z3A.38 38 weeks gestation of pregnancy; Z23 Encounter for immunization
CPT/HCPCS: 59612; 36415; 59025; 80305; 81001; 82800; 85007; 85014; 85018; 85025; 85461; 86328; 96365; 96372; G0463; J0595; J2790

== ENCOUNTER → 2020-06-12 13:34 | Outpatient (CLI) | payer MEDICAID, SELFPAY ==
[2020-06-12 14:13] LABS: Basophils # 0.1 K/mm3 (0-0.2); Basophils % 0.5 % (0.1-2.0); Eosinophils # 0.3 K/mm3 (0.0-0.4); Eosinophils % 2.5 % (0.1-12.0); Hematocrit 36.5 % (37.0-47.0); Hemoglobin 11.6 g/dL (12.2-16.2); Lymphocytes # 2.4 K/mm3 (0.7-4.5); Lymphocytes % 23.2 % (10-50); Mean Corpuscular HGB Conc 31.9 g/dL (31.8-35.4); Mean Corpuscular Hemoglobin 24.2 pg (27.0-31.2); Mean Corpuscular Volume 75.8 fl (81-99); Mean Platelet Volume 7.4 fl (7.4-10.4); Monocytes # 0.4 K/mm3 (0.1-1.0); Neutrophils # 7.2 K/mm3 (1.8-7.8); Neutrophils % 69.7 % (37.0-80.0); Platelet Count 309 K/mm3 (142-424); Red Blood Count 4.81 M/mm3 (4.20-5.40); White Blood Count 10.3 K/mm3 (4.8-10.8)
[2020-06-12 15:08] LABS: HCG Qualitative, Serum Negative (Negative)
[2020-06-12 15:19] LABS: Chloride 105 mmol/L (98-107); Sodium 137 mmol/L (136-145)
[2020-06-12 15:20] LABS: Potassium 4.3 mmoL/L (3.5-5.1)
[2020-06-12 15:22] LABS: Alanine Aminotransferase 21 U/L (12-78); Albumin Level 4.1 g/dl (3.5-5.0); Alkaline Phosphatase 88 U/L (38-126); Aspartate Amino Transferase 23 U/L (14-36); Bilirubin,Total 0.4 mg/dl (0.2-1.3); Blood Urea Nitrogen 15 mg/dl (7-17); Estimated Glomerular Filt Rate 96 ml/min (>60); GFR (African American) 117 ML/MIN (>60)
[2020-06-12 15:23] LABS: Albumin/Globulin Ratio 1.3 (1.1-1.8); Anion Gap 12.3 mEq/L (5-15); Calcium 9.1 mg/dl (8.4-10.2); Carbon Dioxide 24 mmol/L (22.0-30.0); Globulin 3.1 g/dL (1.3-3.2); Glucose 113 mg/dl (74-100); Total Protein,Serum 7.2 g/dl (6.3-8.2)
[2020-06-12 15:29] LABS: Coronavirus 19 IgG Antibody Negative (Negative); Coronavirus 19 IgM Antibody Negative (Negative)
== END ==
PROVIDERS: PCP Emergency Medicine; Visit Provider Obstetrics & Gynecology
DX: Z01.818 Encounter for other preprocedural examination (principal); Z20.822 Contact with and (suspected) exposure to COVID-19; Z30.09 Encounter for other general counseling and advice on contraception
CPT/HCPCS: 36415; 80053; 84703; 85025; 86328

== ENCOUNTER 2020-06-14 07:34 | Day surgery (SDC) | payer MEDICAID, SELFPAY ==
[2020-06-08 12:35] VITALS: BMI 36.6
[2020-06-14] VITALS (10 sets, daily range): BP systolic 108–144; BP diastolic 60–88; PULSE 66–81; RESP 14–18; TEMP 36.1–42.7; O2SAT 92–97
--- NOTE | 2020-06-14 07:57 | HMH.ANESCL ---
[facility] Anesthesia Checklist - Patient Identification Patient Identification: Arm Band - Structural Data Admitted From: Home Planned Operative Procedure/s: Lap. Bilateral tubal ligation Consent for Planned Operative Procedure(s) Verified: Yes - NPO Status Verified Time NPO: 23:00 - Additional verifications Anesthesia Reactions: Yes (PT REPORTS BP DROPPED WITH ANESTHESIA) Hx Blood Transfusions: No Blood Transfusion Reaction: No - Airway Assessment C-Spine Mobility Assessed: Yes TMJ Mobility Assessed: Yes Dentition: Good Dentition - Neurological Assessment Level of Consciousness: Awake, Alert, Appropriate Hx Seizures: No Numbness or tingling in extremities: No - Anesthesia Plan Anesthesia Risk discussed: Yes Anesthesia Plan: Verified ASA Class: II Anesthesia Type: General [facility] History I have reviewed the patient's past medical history: Yes Medical History: Denies:: Cancer, Diabetes Mellitus Type 1, Diabetes Mellitus Type 2, Internal Pacemaker, MRSA, Seizures *Have you ever received a pneumonia vaccine?: No *Have you received a flu vaccine this season?: No Other Medical History: Denies: Blood Transfusion Reaction Anesthesia experience/problems:: Hypotension during C/S Other Surgeries: Yes: , Hernia Repair. No: Pacemaker Amputation: No Fractures: No - *Social History Last grade of school completed: Some college Smoking Status: Never smoker Alcohol Intake: never Alcohol Intake Frequency:: holidays/special occasions only Substance Use Type: denies use *Occupational Status:: employed Housing: house Household Members: family *Travel in the last 8 weeks: None Family Hx:: Cancer, Diabetes, Heart Attack, Hyperlipidemia, Stroke
--- NOTE | 2020-06-14 10:10 | HMH.OPNOTE ---
Date of procedure: 06/14/20 Pre-op Diagnosis:: Undesired fertility Post-op Diagnosis:: same Procedure performed:: Laparoscopic bilateral tubal ligation Surgeon:: Char Ralph MD POCKET AND PULLEY MACHINE OPERATOR:: Other Anesthesia: GETA Estimated blood loss (mL): 5 Operative findings:: grossly normal uterus, bilateral fallopian tubes and ovaries Operative note:: The patient was taken to the operating room and general anesthesia was administered. She was prepped/draped in lithotomy position. A uterine manipulator was placed without difficulty. Gloves were changed and attention was turned to the abdomen. A 5mm skin incision was made in the umbilical fold and the Verees needle was inserted through the peritoneum and into the abdominal cavity in standard fashion. The abdomen was insufflated with CO2 gas. A 5mm non-bladed trocar was inserted directly into the abdominal cavity and appropriate placement was confirmed with the laparoscope. No intra-abdominal injuries occurred during entry into the abdominal cavity, as confirmed visually with the laparoscope. The patient was placed in trendelenburg and a 8mm skin incision was made 2cm above the pubic symphysis. A 8mm non-bladed trocar was inserted under direct visualization, without complication. The uterus was elevated out of the pelvis in order to better visualize the anatomy. A survey of the pelvis and abdomen revealed the findings noted above. The uterus was angled towards the patient right and the left fallopian tube was grasped and a Filshie clip was placed over the tube. The clip was noted to completely occlude the tube. The uterus was then angled towards the patient left, and the right fallopian tube was grasped and a Filshie clip was placed over the tube. The clip was noted to completely occlude the tube. The uterine manipulator was removed. The abdomen was then evacuated of gas and all trocars removed. The skin incisions were closed with Dermabond. The patient tolerated the procedure well. Sponge/lap/needle/instrument counts were correct at conclusion of procedure. She was taken out of lithotomy position and awakened from anesthesia, and was taken to the recovery room in stable condition. Condition: stable Disposition: PACU Specimens:: none Complications:: none
--- NOTE | 2020-06-14 14:49 | HMH.ANESCL ---
[facility] Anesthesia Checklist - Patient Identification Patient Identification: Arm Band - Structural Data Admitted From: Home Planned Operative Procedure/s: Bilat lap tubal Consent for Planned Operative Procedure(s) Verified: Yes Verified Documents: Surgical Consent, History and Physical - NPO Status Verified Time NPO: 00:00 - Additional verifications Anesthesia Reactions: Yes (PT REPORTS BP DROPPED WITH ANESTHESIA) Hx Blood Transfusions: No Blood Transfusion Reaction: No - Airway Assessment C-Spine Mobility Assessed: Yes TMJ Mobility Assessed: Yes Dentition: Poor Dentition - Neurological Assessment Level of Consciousness: Awake, Alert - Anesthesia Plan Anesthesia Risk discussed: Yes Anesthesia Plan: Verified ASA Class: III Anesthesia Type: General [facility] History Medical History: Denies:: Cancer, Diabetes Mellitus Type 1, Diabetes Mellitus Type 2, Internal Pacemaker, MRSA, Seizures *Have you ever received a pneumonia vaccine?: No *Have you received a flu vaccine this season?: No Other Medical History: Denies: Blood Transfusion Reaction Anesthesia experience/problems:: Hypotension during C/S Other Surgeries: Yes: , Hernia Repair. No: Pacemaker Amputation: No Fractures: No - *Social History Last grade of school completed: Some college Smoking Status: Never smoker Alcohol Intake: never Alcohol Intake Frequency:: holidays/special occasions only Substance Use Type: denies use *Occupational Status:: employed Housing: house Household Members: family *Travel in the last 8 weeks: None Family Hx:: Cancer, Diabetes, Heart Attack, Hyperlipidemia, Stroke
--- NOTE | 2020-06-14 14:50 | P.PN_ITS ---
[facility] Anesthesia Record Part I Intake, IV Amount: 800 Estimated blood loss (mL): 2 Urine output (mL): 0 Blood Products used (#): none Blood Pressure: 138/69 SaO2: 94 Pulse Rate: 81 Respiratory Rate: 14 Temperature: 97.6 F Patient is:: Drowsy, Stable
--- NOTE | 2020-06-15 13:38 | P.PN_ITS ---
[facility] Anesthesia Record Part II Discharge Time: 10:10 Destination: [facility] PACU nurse assessment reviewed?: Yes Patient Condition:: Good Anesthesia Complications:: None Swallowing reflex intact?: Yes Cyanosis?: No Blood Pressure: 121/88 Pulse Rate: 71 Temperature: 98.3 F Mental Status: Alert & Oriented Pain level:: 0 Nausea and/or vomitting:: None Intake, IV Amount: 1,200
[2020-06-15 13:40] VITALS: BP 121/88; PULSE 71; TEMP 36.8
== END 2020-06-14 10:46 | disposition home or self-care (01) ==
LOC: OR 07:35
PROVIDERS: PCP Emergency Medicine; Visit Provider Obstetrics & Gynecology
PROC: 0UL74ZZ Occlusion of Bilateral Fallopian Tubes, Percutaneous Endoscopic Approach (ICD-10-PCS; CPT 58670; principal; 2020-06-14 08:30)
DX: Z30.2 Encounter for sterilization (principal); Z88.0 Allergy status to penicillin; Z88.1 Allergy status to other antibiotic agents; Z80.9 Family history of malignant neoplasm, unspecified; Z83.3 Family history of diabetes mellitus; Z82.3 Family history of stroke; Z83.438 Family history of other disorder of lipoprotein metabolism and other lipidemia; Z79.899 Other long term (current) drug therapy
CPT/HCPCS: 58671; 96374; J0131; J2405

== ENCOUNTER → 2020-10-06 13:35 | Outpatient (CLI) | payer MEDICAID, SELFPAY ==
[2020-10-06 14:19] LABS: Alanine Aminotransferase 54 U/L (12-78); Albumin Level 4.4 g/dl (3.5-5.0); Albumin/Globulin Ratio 1.3 (1.1-1.8); Alkaline Phosphatase 88 U/L (38-126); Amylase 61 U/L (30-110); Aspartate Amino Transferase 38 U/L (14-36); Bilirubin,Total 0.6 mg/dl (0.2-1.3); Blood Urea Nitrogen 12 mg/dl (7-17); Calcium 9.3 mg/dl (8.4-10.2); Carbon Dioxide 24 mmol/L (22.0-30.0); Chloride 104 mmol/L (98-107); Chol/HDL Ratio 4.4 (1-3.5); Cholesterol 189 mg/dl (140-200); Estimated Glomerular Filt Rate 114 ml/min (>60); GFR (African American) 138 ML/MIN (>60); Globulin 3.4 g/dL (1.3-3.2); Glucose 88 mg/dl (74-100); HDL Cholesterol 43 mg/dl (40-60); Lipase 50 U/L (23-300); Sodium 138 mmol/L (136-145); Total Protein,Serum 7.8 g/dl (6.3-8.2); Triglycerides 197 mg/dl (30-150); VLDL Cholesterol 39 mg/dL (0-40)
[2020-10-06 14:22] LABS: Basophils % 0.3 % (0.1-2.0); Eosinophils # 0.1 K/mm3 (0.0-0.4); Eosinophils % 1.2 % (0.1-12.0); Hematocrit 38.8 % (37.0-47.0); Hemoglobin 12.6 g/dL (12.2-16.2); Lymphocytes # 2.1 K/mm3 (0.7-4.5); Lymphocytes % 21.9 % (10-50); Mean Corpuscular HGB Conc 32.5 g/dL (31.8-35.4); Mean Corpuscular Volume 77.1 fl (81-99); Monocytes # 0.5 K/mm3 (0.1-1.0); Monocytes % 4.8 % (1.7-9.3); Neutrophils # 6.9 K/mm3 (1.8-7.8); Neutrophils % 71.8 % (37.0-80.0); Platelet Count 355 K/mm3 (142-424); Red Blood Count 5.03 M/mm3 (4.20-5.40); Red Cell Distribution Width 15.3 % (11.5-17.5); White Blood Count 9.6 K/mm3 (4.8-10.8)
[2020-10-06 14:30] LABS: Direct LDL Cholesterol 94.28 mg/dL (100-129)
[2020-10-06 14:31] LABS: Adenovirus F 40/41, stool Not Detected (NotDetected); Astrovirus Not Detected (NotDetected); Campylobacter Not Detected (NotDetected); Clostridium Difficile A/B, PCR Not Detected (NotDetected); Cryptosporidium Not Detected (NotDetected); Cyclospora Cayetanesis Not Detected (NotDetected); Entamoeba histolytica Not Detected (NotDetected); Enteroaggregative E coli Not Detected (NotDetected); Enterotoxigenic E coli Not Detected (NotDetected); Giardia lamblia Not Detected (NotDetected); Norovirus Not Detected (NotDetected); Plesimonas Shigalloides, PCR Not Detected (NotDetected); Rotavirus A Not Detected (NotDetected); Salmonella, PCR Not Detected (NotDetected); Sapovirus Not Detected (NotDetected); Shiga-like toxin E coli Not Detected (NotDetected); Shigella Enterovasive E coli Not Detected (NotDetected); Vibrio Cholerae Not Detected (NotDetected); Vibrio, PCR Not Detected (NotDetected); Yersinia Entercolitica, PCR Not Detected (NotDetected)
[2020-10-06 14:41] LABS: Free T4 (Free Thyroxine) 0.68 ng/dl (0.78-2.19)
[2020-10-06 15:20] LABS: Thyroid Stimulating Hormone 5.91 uIU/mL (0.465-4.68)
[2020-10-06 17:30] LABS: Enteropathogenic E coli Detected (NotDetected)
== END ==
PROVIDERS: Visit Provider Physician Assistant
DX: R10.9 Unspecified abdominal pain (principal); R19.7 Diarrhea, unspecified; E66.9 Obesity, unspecified; Z68.38 Body mass index [BMI] 38.0-38.9, adult; A04.0 Enteropathogenic Escherichia coli infection
CPT/HCPCS: 80053; 80061; 82150; 83690; 84439; 84443; 85025; 87507

== ENCOUNTER → 2020-10-13 07:54 | Outpatient (CLI) | payer MEDICAID, SELFPAY ==
--- NOTE | 2020-10-13 07:54 | US_ITS ---
PROCEDURE: US ABDOMEN LIMITED CLINICAL INDICATION: post prandial diarrhea, abd pain The COMPARISON: No exams were available for comparison FINDINGS: PANCREAS: Pancreatic tail is not well identified due to overlying bowel gas. The body and head of the pancreas has an unremarkable appearance. LIVER: No focal liver lesions demonstrated. Homogeneous echogenicity. No intrahepatic biliary ductal dilatation evident. There is appropriate direction of blood flow within a non dilated portal vein RIGHT KIDNEY: Unremarkable. Normal size and echogenicity. No hydronephrosis GALLBLADDER: No gallstones, gallbladder wall thickening, pericholecystic fluid, or biliary dilatation. IMPRESSION: Unremarkable limited abdominal ultrasound as detailed above disc Dictated by: Evan Mendoza MD 10/13/2020 13:43 Evan Mendoza MD in [place] 10/13/2020 13:43
== END ==
PROVIDERS: PCP Emergency Medicine; Visit Provider Physician Assistant
DX: R10.13 Epigastric pain (principal); R19.7 Diarrhea, unspecified
CPT/HCPCS: 76705

== ENCOUNTER → 2021-03-27 14:09 | Outpatient (CLI) | payer MEDICAID, SELFPAY ==
[2021-03-27 14:38] LABS: Free T4 (Free Thyroxine) 0.92 ng/dl (0.78-2.19)
[2021-03-27 14:52] LABS: Thyroid Stimulating Hormone 5.42 uIU/mL (0.465-4.68)
== END ==
PROVIDERS: Visit Provider Emergency Medicine
DX: E66.9 Obesity, unspecified (principal); Z68.34 Body mass index [BMI] 34.0-34.9, adult
CPT/HCPCS: 84439; 84443

== ENCOUNTER → 2022-03-08 11:09 | Outpatient (CLI) | payer MEDICAID, SELFPAY ==
[2022-03-08 12:58] LABS: Free Thyroxine Index 1.7 ug/dL (5.93-13.13); T4 (Thyroxine) 5.9 ug/dl (5.53-11.0); Triiodothryronine (T3) Uptake 28 % (23.5-40.5)
[2022-03-08 13:12] LABS: Thyroid Stimulating Hormone 4.45 uIU/mL (0.465-4.68)
== END ==
PROVIDERS: PCP Emergency Medicine; Visit Provider Obstetrics & Gynecology
DX: Z01.419 Encounter for gynecological examination (general) (routine) without abnormal findings (principal)
CPT/HCPCS: 36415; 84436; 84443; 84479

== ENCOUNTER → 2022-04-24 12:48 | Outpatient (CLI) | payer MEDICAID, SELFPAY ==
--- NOTE | 2022-04-24 12:53 | US_ITS ---
FINAL REPORT CLINICAL HISTORY: increased thyroid COMPARISON: 06/26/2019 FINDINGS: THYROID ULTRASOUND Sonographic images of the thyroid was obtained. The right lobe of the thyroid measures 8.9 x 4.8 x 4.7 cm. The left lobe of the thyroid measures 7.4 x 3.9 x 3.5 cm. The isthmus measures 1.6 cm. The thyroid is significantly enlarged and markedly heterogeneous. There are bilateral thyroid nodules as follows: 1. Dominant nodule in the right lower pole measuring 1.6 cm, unchanged. 2. Dominant nodule in the left lower pole measures 1.9 cm and is similar to the prior exam. Findings are probably stable considering differences in slice selection. IMPRESSION: Stable multinodular goiter. Reviewed, Interpreted and Dictated by Karlos Rodríguez MD Transcribed by Stacy Grimes Authenticated and [facility]
[2022-04-24 14:13] LABS: Basophils # 0.1 K/mm3 (0-0.2); Basophils % 0.5 % (0.1-2.0); Eosinophils # 0.1 K/mm3 (0.0-0.4); Eosinophils % 1.2 % (0.1-12.0); Hematocrit 36.8 % (37.0-47.0); Hemoglobin 11.7 g/dL (12.2-16.2); Lymphocytes # 2.5 K/mm3 (0.7-4.5); Lymphocytes % 20.8 % (10-50); Mean Corpuscular HGB Conc 31.7 g/dL (31.8-35.4); Mean Corpuscular Hemoglobin 25.1 pg (27.0-31.2); Mean Corpuscular Volume 79.1 fl (81-99); Mean Platelet Volume 7.4 fl (7.4-10.4); Monocytes # 0.5 K/mm3 (0.1-1.0); Monocytes % 3.9 % (1.7-9.3); Neutrophils # 8.7 K/mm3 (1.8-7.8); Neutrophils % 73.5 % (37.0-80.0); Platelet Count 365 K/mm3 (142-424); Red Blood Count 4.65 M/mm3 (4.20-5.40); Red Cell Distribution Width 15.6 % (11.5-17.5); White Blood Count 11.8 K/mm3 (4.8-10.8)
[2022-04-24 17:03] LABS: Alanine Aminotransferase 17 U/L (12-78); Albumin Level 4.1 g/dl (3.5-5.0); Albumin/Globulin Ratio 1.2 (1.1-1.8); Alkaline Phosphatase 75 U/L (38-126); Anion Gap 11.4 mEq/L (5-15); Aspartate Amino Transferase 21 U/L (14-36); Bilirubin,Total 0.5 mg/dl (0.2-1.3); Blood Urea Nitrogen 12 mg/dl (7-17); Calcium 8.6 mg/dl (8.4-10.2); Carbon Dioxide 27 mmol/L (22.0-30.0); Chloride 103 mmol/L (98-107); Chol/HDL Ratio 4.3 (1-3.5); Cholesterol 189 mg/dl (140-200); Estimated Glomerular Filt Rate 114 ml/min (>60); GFR (African American) 138 ML/MIN (>60); Globulin 3.3 g/dL (1.3-3.2); Glucose 82 mg/dl (74-100); HDL Cholesterol 44 mg/dl (40-60); Potassium 4.4 mmoL/L (3.5-5.1); Sodium 137 mmol/L (136-145); Total Protein,Serum 7.4 g/dl (6.3-8.2); Triglycerides 242 mg/dl (30-150); VLDL Cholesterol 48 mg/dL (0-40)
[2022-04-24 17:20] LABS: 25-OH Vitamin D, Total 27.4 ng/mL (30-100); Free T4 (Free Thyroxine) 0.74 ng/dl (0.78-2.19)
[2022-04-24 17:34] LABS: Thyroid Stimulating Hormone 4.04 uIU/mL (0.465-4.68)
== END ==
PROVIDERS: PCP Emergency Medicine; Visit Provider Emergency Medicine
DX: E04.9 Nontoxic goiter, unspecified (principal); R53.83 Other fatigue; E55.9 Vitamin D deficiency, unspecified
CPT/HCPCS: 36415; 76536; 80053; 80061; 82306; 84439; 84443; 85025

== ENCOUNTER → 2022-09-24 16:20 | Outpatient (CLI) | payer MEDICAID, SELFPAY ==
[2022-09-24 17:55] LABS: Alanine Aminotransferase 18 U/L (12-78); Albumin Level 4.1 g/dl (3.5-5.0); Albumin/Globulin Ratio 1.3 (1.1-1.8); Alkaline Phosphatase 84 U/L (38-126); Anion Gap 13.2 mEq/L (5-15); Aspartate Amino Transferase 22 U/L (14-36); Bilirubin,Total 0.4 mg/dl (0.2-1.3); Blood Urea Nitrogen 16 mg/dl (7-17); Carbon Dioxide 26 mmol/L (22.0-30.0); Chloride 104 mmol/L (98-107); Chol/HDL Ratio 4.7 (1-3.5); Cholesterol 203 mg/dl (140-200); Estimated Glomerular Filt Rate 81 ml/min (>60); GFR (African American) 98 ML/MIN (>60); Globulin 3.2 g/dL (1.3-3.2); Glucose 86 mg/dl (74-100); HDL Cholesterol 43 mg/dl (40-60); Potassium 4.2 mmoL/L (3.5-5.1); Sodium 139 mmol/L (136-145); Total Protein,Serum 7.3 g/dl (6.3-8.2)
[2022-09-24 17:56] LABS: Triglycerides 409 mg/dl (30-150)
[2022-09-24 18:07] LABS: Direct LDL Cholesterol 84.13 mg/dL (100-129)
[2022-09-24 18:43] LABS: Thyroid Stimulating Hormone 5.59 uIU/mL (0.465-4.68)
[2022-09-24 21:55] LABS: Hemoglobin A1C 4.9 % (4.0-6.0)
== END ==
PROVIDERS: PCP Emergency Medicine; Visit Provider Family Medicine
DX: E88.9 Metabolic disorder, unspecified (principal); E78.9 Disorder of lipoprotein metabolism, unspecified; Z13.29 Encounter for screening for other suspected endocrine disorder; Z13.1 Encounter for screening for diabetes mellitus; E03.9 Hypothyroidism, unspecified; Z79.899 Other long term (current) drug therapy; E66.9 Obesity, unspecified; Z68.39 Body mass index [BMI] 39.0-39.9, adult
CPT/HCPCS: 36415; 80053; 80061; 83036; 84443

== ENCOUNTER 2023-02-17 10:18 | Emergency (ER) | payer MEDICAID, SELFPAY ==
[2023-02-17 11:10] VITALS: BP 119/76; PULSE 85; RESP 18; TEMP 37.3; O2SAT 99; BMI 32.8
--- NOTE | 2023-02-17 11:24 | EXP.UTC ---
Discharge Plan Disposition Patient Disposition: Home, Self-Care Condition: Good Prescriptions Prescriptions: New fluconazole 150 mg tablet 150 mg PO Q3D Qty: 2 0RF No Action Wegovy 0.25 mg/0.5 mL pen injector 0.25 mg SQ WEEKLY Qty: 2 0RF Rx Instructions: administer weeks 1 through 4 of therapy Contrave 8-90 mg tablet extended release 1 tab PO DAILY Qty: 30 2RF cholecalciferol (vitamin D3) 25 mcg (1,000 unit) capsule 1,000 unit PO DAILY Qty: 90 1RF levothyroxine 25 mcg tablet See Rx Instructions .ROUTE .COMPLEX Qty: 90 0RF Dose Instruction: Take 1 tablet by mouth once daily Rx Instructions: Take 1 tablet by mouth once daily ergocalciferol (vitamin D2) 1,250 mcg (50,000 unit) capsule See Rx Instructions .ROUTE .COMPLEX Qty: 12 0RF Dose Instruction: TAKE 1 CAPSULE BY MOUTH ONCE A WEEK FOR 90 DAYS Rx Instructions: TAKE 1 CAPSULE BY MOUTH ONCE A WEEK FOR 90 DAYS Referrals Follow up/Referrals: Jose Andrews DO [Primary Care Provider] - See instructions Activity Restrictions/Add. Instructions Additional Instructions/Restrictions: Drink plenty of fluids. Take tylenol or ibuprofen for pain or fever. Take the medications as directed. Follow up with your regular doctor. GO TO THE ER FOR ANY WORSENING SYMPTOMS We will culture your urine. That will tell what bacteria is causing your infection and which antibiotics will treat it best. Sometimes the first antibiotic we prescribe turns out to not work against different bacteria. So, make sure you follow up within 3 days if you are not getting better. Clinical Impressions Clinical Impression: Acute candidiasis of vulva and vagina Instructions Patient Instructions: DI for Vaginal Yeast Infection, Fluconazole Discharge ED Provider: Cali Madera [facility] General Stated complaint: burning when urinates, back pain Time Seen by Provider: 02/17/23 11:24 History of Present Illness Provider Complaint: She states that for the past 3 days she has had dysuria and redness and irritation of her groin area. Related Data Previous Rx's Medication Instructions Recorded cholecalciferol (vitamin D3) 25 1,000 unit PO DAILY #90 caps 05/01/22 mcg (1,000 unit) capsule ergocalciferol (vitamin D2) 1,250 See Rx Instructions .Route 07/04/22 mcg (50,000 unit) capsule .COMPLEX #12 caps levothyroxine 25 mcg tablet See Rx Instructions .Route 07/04/22 .COMPLEX #90 tabs naltrexone 8 mg-bupropion 90 mg 1 tab PO DAILY #30 tabs 08/24/22 tablet,extended release (Contrave) semaglutide (weight loss) 0.25 0.25 mg (0.5 mL) SQ WEEKLY #2 mL 08/24/22 mg/0.5 mL subcutaneous pen injector (Wegovy) fluconazole 150 mg tablet 150 mg PO Q3D 2 doses #2 tabs 02/17/23 Allergies Allergy/AdvReac Type Severity Reaction Status Date / Time amoxicillin [AMOXICILLIN] Allergy Mild Verified 02/17/23 11:36 Penicillins [PENICILLINS] Allergy Mild Verified 02/17/23 11:36 [facility] Disclaimer: The information contained in this section may have been updated after the patient was seen, as this information can be updated by other users. 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
[2023-02-17 11:29] LABS: Apearance,Urine Clear (Clear); Blood, Urine Negative (Negative); Color,Urine Dark Yellow (Yellow); Glucose,Urine (UA) Negative (Negative); Ketones,Urine Negative (Negative); PH,Urine 6.5 (5.0-8.5); Protein,Urine Negative (Negative); Specific Gravity, Urine 1.025 (1.005-1.030)
[2023-02-17 11:30] LABS: Bilirubin,Urine Negative (Negative); UTC Leukocyte Esterase,Urine Negative (Negative); UTC Nitrate,Urine Negative (Negative); Urobilinogen,Urine 0.2 EU/dl (0.2)
[2023-02-17 11:58] VITALS: BP 119/76; PULSE 85; RESP 18; TEMP 37.3; O2SAT 99
== END 2023-02-17 11:58 | disposition home or self-care (01) ==
PROVIDERS: Emergency Provider Nurse Practitioner Family; PCP Internal Medicine
DX: B37.31 Acute candidiasis of vulva and vagina (principal); R30.0 Dysuria; M54.59 Other low back pain
CPT/HCPCS: 81003; 87086; 99204; 99212; G0463

== ENCOUNTER 2023-04-26 07:50 | Emergency (ER) | payer SELFPAY ==
[2023-04-26] VITALS (9 sets, daily range): BP systolic 99–130; BP diastolic 49–81; PULSE 85–121; RESP 15–23; TEMP 36.7–36.9; O2SAT 97–100; BMI 32.8
--- NOTE | 2023-04-26 07:59 | ECG_ITS ---
APPROVED REPORT Exam: Resting ECG HR:107 bpm ECG Measurements Heart Rate 107 AXES MA 129 P 61 QRSd 99 QRS 52 QT 331 T 42 QTc 394 Conclusion SINUS TACHYCARDIA LOW QRS VOLTAGE IN PRECORDIAL LEADS [QRS DEFLECTION < 1.0 mV IN CHEST LEADS] ABNORMAL RHYTHM ECG UNCONFIRMED REPORT Electronically signed by : Kunal Reynolds MD 04/27/2023 06:33:37
--- NOTE | 2023-04-26 08:08 | PC.NURSE ---
Dr. Cary at [facility] for pt eval
--- NOTE | 2023-04-26 08:16 | HMH.EDGENADL ---
Discharge Plan Disposition Patient Disposition: Home, Self-Care Condition: Good Prescriptions Prescriptions: New doxycycline hyclate 100 mg capsule 100 mg PO BID 7 Days Qty: 14 0RF No Action Wegovy 0.25 mg/0.5 mL pen injector 0.25 mg SQ WEEKLY Qty: 2 0RF Rx Instructions: administer weeks 1 through 4 of therapy Referrals Follow up/Referrals: Jose Andrews DO [Primary Care Provider] - See instructions Activity Restrictions/Add. Instructions Additional Instructions/Restrictions: You have been evaluated in the ED for your complaints. You may follow-up with your PCP in the next 3 to 5 days. Please return to ED for any new or worsening symptoms. Clinical Impressions Clinical Impression: Right middle lobe pneumonia, Syncope Instructions Patient Instructions: DI for Syncope in Adults (Fainting), Pneumonia-Adult Discharge ED Provider: Luke Cary Adult HPI General Chief complaint: Syncope Stated complaint: fever 105 fainting migraine Time Seen by Provider: 04/26/23 08:06 Mode of Arrival: Ambulatory Source of Information: Patient Limitations: No Limitations Description of Symptoms (Recalled from ER Triage Doc. by RN): Pt. c/o fever of 105, chills, and migraine headache for 2 days. She stated she passed out this morning while getting her son ready for school. She states she did fall to the gorund, denies injury. She does not know how long she was unconscious for. History of Present Illness HPI narrative: 37-year-old female with with past medical history significant for hypothyroidism, metabolic syndrome, tubal ligation, presents today for evaluation concerning syncopal episode that occurred this morning while she was attempting to get her son ready for school. States that she was reaching for his clothes and passed out. She does report that over the past couple of days she has had fevers noting that this morning her fever was 105 ?F with tympanic thermometer. Also reports a generalized migraine over the past 2 days. Denies any visual disturbances, nausea, vomiting, abdominal pain, chest pain, shortness of breath. She does note that she started her menstrual cycle on this past Saturday and has been bleeding more than usual. States that she has been using 4 superabsorbent pads per day. Denies any diarrhea or any other significant fluid losses. No further complaints. Related Data Previous Rx's Medication Instructions Recorded semaglutide (weight loss) 0.25 0.25 mg (0.5 mL) SQ WEEKLY #2 mL 08/24/22 mg/0.5 mL subcutaneous pen injector (SteveRxVantageerick) doxycycline hyclate 100 mg capsule 100 mg PO BID 7 days #14 caps 04/26/23 Allergies Allergy/AdvReac Type Severity Reaction Status Date / Time amoxicillin [AMOXICILLIN] Allergy Mild Verified 04/26/23 07:57 Penicillins [PENICILLINS] Allergy Mild Verified 04/26/23 07:57 [facility] Disclaimer: The information contained in this section may have been updated after the patient was seen, as this information can be updated by other users. 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) current occupational exposures/hazards: No caffeine: Yes ROS Obtained: Yes All systems reviewed & no additional complaints except as documented Physical Exam General General appearance: alert and in no apparent distress Head Head exam: atraumatic and normocephalic Eye Eye exam: Present normal appearance, PERRL and EOMI ENT ENT exam: Present normal oropharynx and mucous membranes moist Neck Neck exam: Present full ROM; Absent meningismus Respiratory Respiratory exam: Absent respiratory distress, wheezes, stridor or accessory muscle use Cardiovascular Cardiovascular exam: Present normal rhythm Abdominal Exam Abdominal exam: Present soft; Absent distention, tenderness, guarding, rebound or rigidity Neurological Exam Neurological exam: Present alert, oriented X3 and CN II-XII intact; Absent motor sensory deficit Psychiatric Psychiatric exam: Present normal affect and normal mood Skin Skin exam: Present warm and dry Medical Decision Making Medical Records Medical records reviewed: Yes I reviewed the patient's medical records. Gurvinder Inquiry Pt receiving controlled substance: No Gurvinder was queried for this patient: No Vital Signs: 04/26/23 07:58 04/26/23 08:10 04/26/23 08:30 Temperature 98.4 F Temperature Source Oral Pulse Rate 105 H 98 H Pulse Rate [Right Brachial] 121 H Respiratory Rate 16 20 Blood Pressure 119/49 L 99/65 L Blood Pressure [Right Arm] 130/81 Blood Pressure Mean [Right Arm] 97 Blood Pressure Source [Right Arm] Automatic Cuff Blood Pressure Position [Right Arm] Sitting 02 Sat by Pulse Oximetry 97 99 98 Oxygen Delivery Method Room Air Room Air Room Air 04/26/23 08:50 04/26/23 09:10 04/26/23 09:30 Temperature Temperature Source Pulse Rate 91 H 104 H 91 H Pulse Rate [Right Brachial] Respiratory Rate 20 23 16 Blood Pressure 106/68 L 109/69 L 113/63 Blood Pressure [Right Arm] Blood Pressure Mean [Right Arm] Blood Pressure Source [Right Arm] Blood Pressure Position [Right Arm] 02 Sat by Pulse Oximetry 99 99 100 Oxygen Delivery Method Room Air Room Air Room Air 04/26/23 10:00 04/26/23 10:30 Temperature Temperature Source Pulse Rate 85 85 Pulse Rate [Right Brachial] Respiratory Rate 16 15 Blood Pressure 111/62 109/73 L Blood Pressure [Right Arm] Blood Pressure Mean [Right Arm] Blood Pressure Source [Right Arm] Blood Pressure Position [Right Arm] 02 Sat by Pulse Oximetry 98 99 Oxygen Delivery Method Room Air Room Air Lab Data Lab Results 04/26/23 08:09: WBC 9.4, RBC 4.71, Hgb 12.4, Hct 37.3, MCV 79.2 L, MCH 26.4 L, MCHC 33.3, RDW 15.1, Plt Count 300, MPV 7.8, Neut % (Auto) 77.6, Lymph % (Auto) 16.0, Hettinger % (Auto) 5.8, Eos % (Auto) 0.3, Baso % (Auto) 0.2, Neut # (Auto) 7.3, Lymph # (Auto) 1.5, Hettinger # (Auto) 0.6, Eos # (Auto) 0.0, Baso # (Auto) 0.0, D-Dimer 0.52 H, Sodium 136, Potassium 3.7, Chloride 104, Carbon Dioxide 26, Anion Gap 9.7, BUN 9, Creatinine 0.80, Estimated Creat Clear 146, Estimated GFR 81, Est GFR ( Amer) 98, Glucose 106 H, Lactate 0.8, Calcium 8.7, Total Bilirubin 0.7, AST 24, ALT 17, Alkaline Phosphatase 72, Troponin I < 0.01, Total Protein 7.7, Albumin 4.0, Globulin 3.7 H, Albumin/Globulin Ratio 1.1, Serum HCG, Qual Negative 04/26/23 08:31: SARS-CoV-2 (PCR) Not detected, Influenza A Untype (PCR) Not detected, Influenza Type B (PCR) Not detected 04/26/23 08:09 04/26/23 08:09 Orders (Tests/Meds): ED MEDICATIONS Generic Name Dose Route Start Last Admin Trade Name Freq PRN Reason Stop Dose Admin Sodium Chloride 10 ml 04/26/23 09:17 Sodium Chloride 0.9% 10ml Syr (Rad Only) IV 05/26/23 09:16 NEEDED PRN Maintain IV Site Discontinued Medications Generic Name Dose Route Start Last Admin Trade Name Freq PRN Reason Stop Dose Admin Lactated Ringer's 1,000 mls @ 999 mls/hr 04/26/23 08:12 04/26/23 08:45 Lactated Ringer's 1000 Ml Bag IV 04/26/23 09:12 999 mls/hr .Q1H1M ONE Administration Ibuprofen 800 mg 04/26/23 09:15 04/26/23 09:22 Ibuprofen 800 Mg Tablet PO 04/26/23 09:16 Not Given ONCE ONE Ibuprofen 800 mg 04/26/23 09:21 04/26/23 09:23 Ibuprofen 400 Mg Tablet PO 04/26/23 09:22 800 mg ONCE ONE Administration Iopamidol 70 ml 04/26/23 09:17 04/26/23 09:19 Iopamidol-370 (76%);100ml Bottle IV 04/26/23 09:18 70 ml ONCE ONE Administration Sodium Chloride 50 ml 04/26/23 09:17 04/26/23 09:19 0.9 % Sodium Chloride 50 Ml Vial IV 04/26/23 09:18 50 ml ONCE ONE Administration ORDERS Category Date Time Status CT angio chest PE protocol Stat Cat Scan 04/26/23 08:39 Completed Complete Blood Count Auto Diff Stat Lab 04/26/23 08:09 Completed Comprehensive Metabolic Panel Stat Lab 04/26/23 08:09 Completed D-Dimer Stat Lab 04/26/23 08:09 Completed HCG Qualitative, Serum Stat Lab 04/26/23 08:09 Completed Lactic Acid Stat Lab 04/26/23 08:09 Completed Rapid PCR Covid and Flu A/B Stat Lab 04/26/23 08:31 Completed Troponin I Stat Lab 04/26/23 08:09 Completed ECG Data Tracing #1: EKG personally interpreted by me. Sinus tachycardia with a rate of [address] elevations are noted. WA interval 129. QTc of 394. HEART Score History (anamnesis): Slightly suspicious ECG: Normal Age: <45 years Risk factors: No known risk factors Troponin: </= normal limit HEART Score: 0 Medical Decision Narrative: 37-year-old female with with past medical history significant for hypothyroidism, metabolic syndrome, tubal ligation, presents today for evaluation concerning syncopal episode that occurred this morning while she was attempting to get her son ready for school. States that she was reaching for his clothes and passed out. She does report that over the past couple of days she has had fevers noting that this morning her fever was 105 ?F with tympanic thermometer. Also reports a generalized migraine over the past 2 days. She does note that she started her menstrual cycle on this past Saturday and states that she has been bleeding heavier than usual. Has been using for superabsorbent pads since the start of her cycle. On assessment, she was hemodynamically stable and in no acute distress. Afebrile. Mildly tachycardic in the low 100s. Chest is clear to auscultation bilaterally. She did not complain of any chest discomfort or shortness of breath. Her abdomen was soft nondistended and nontender to palpation. Other physical exam findings unremarkable. Differential diagnoses include but not limited to , orthostatic response, vagal response, fluid loss, ectopic, ACS, PE, among others. Patient's lab workup today has been remarkable for a WBC of 9.4. No anemia with hemoglobin of 12.4, hematocrit of 37.2. Troponin 1 less than 0.01. EKG shows sinus tachycardia however there were no ST elevations noted to suggest ischemia. D-dimer was noted to be 0.52, I did order for a CT PE to assess and rule out pulmonary embolism as a potential cause of patient's syncopal episode. CT PE with no pulmonary embolism however with concerns for right middle lobe pneumonia. Negative swabs. On reassessment patient malinda medically stable and in no acute distress. She states that her headache is improved at this time. Heart rate is also improved with IV fluids. I discussed with patient her ED workup and results and current diagnosis of a right middle lobe pneumonia. Will plan to treat with doxycycline as patient has an allergy to penicillins. Provided with return to ED precautions and instructions concerning PCP follow-up. Patient verbalized understanding and agreed with plan. Subsequent discharged home in medically stable in no acute distress. Critical Care Critical Care Time Critical Care Time: No
[2023-04-26 08:21] LABS: Basophils % 0.2 % (0.1-2.0); Eosinophils % 0.3 % (0.1-12.0); Hematocrit 37.3 % (37.0-47.0); Hemoglobin 12.4 g/dL (12.2-16.2); Lymphocytes # 1.5 K/mm3 (0.7-4.5); Mean Corpuscular HGB Conc 33.3 g/dL (31.8-35.4); Mean Corpuscular Hemoglobin 26.4 pg (27.0-31.2); Mean Corpuscular Volume 79.2 fl (81-99); Mean Platelet Volume 7.8 fl (7.4-10.4); Monocytes # 0.6 K/mm3 (0.1-1.0); Monocytes % 5.8 % (1.7-9.3); Neutrophils # 7.3 K/mm3 (1.8-7.8); Neutrophils % 77.6 % (37.0-80.0); Platelet Count 300 K/mm3 (142-424); Red Blood Count 4.71 M/mm3 (4.20-5.40); Red Cell Distribution Width 15.1 % (11.5-17.5); White Blood Count 9.4 K/mm3 (4.8-10.8)
[2023-04-26 08:24] LABS: Chloride 104 mmol/L (98-107); Potassium 3.7 mmoL/L (3.5-5.1); Sodium 136 mmol/L (136-145)
[2023-04-26 08:27] LABS: Alanine Aminotransferase 17 U/L (12-78); Albumin/Globulin Ratio 1.1 (1.1-1.8); Alkaline Phosphatase 72 U/L (38-126); Anion Gap 9.7 mEq/L (5-15); Aspartate Amino Transferase 24 U/L (14-36); Bilirubin,Total 0.7 mg/dl (0.2-1.3); Blood Urea Nitrogen 9 mg/dl (7-17); Carbon Dioxide 26 mmol/L (22.0-30.0); Creatinine Clearance Estimated 146 mL/min (50-200); Estimated Glomerular Filt Rate 81 ml/min (>60); GFR (African American) 98 ML/MIN (>60); Globulin 3.7 g/dL (1.3-3.2); Total Protein,Serum 7.7 g/dl (6.3-8.2)
[2023-04-26 08:28] LABS: Calcium 8.7 mg/dl (8.4-10.2); Glucose 106 mg/dl (74-100); Lactic Acid 0.8 mmol/L (0.7-2.1)
[2023-04-26 08:33] LABS: D-Dimer 0.52 ug/mL (0.0-0.5)
[2023-04-26 08:35] LABS: Coronavirus 19, PCR Not Detected (NotDetected); Influenza A, PCR Not Detected (NotDetected); Influenza B, PCR Not Detected (NotDetected)
--- NOTE | 2023-04-26 08:37 | PC.NURSE ---
Rounded on pt. No needs or complaints voiced at this time. Call light remains with reach.
--- NOTE | 2023-04-26 08:39 | CT_ITS ---
FINAL REPORT CLINICAL HISTORY: syncope, elevated D dimer FINDINGS: Thin section axial CT images of the chest were obtained with contrast. 3D reformatted images were also obtained. This study was performed with techniques to keep radiation doses as low as reasonably achievable (ALARA). Individualized dose reduction techniques using automated exposure control or adjustment of mA and/or kV according to the patient''s size were employed. There is marked enlargement of the thyroid, likely represents goiter with multiple nodules. There is no evidence of pulmonary embolism. There is no evidence of thoracic aortic aneurysm or dissection. There is no evidence of mediastinal or hilar mass or adenopathy. There are bilateral pulmonary ground-glass opacities, favor edema. Lateral right middle lobe consolidation is worrisome for pneumonia. Limited images of the upper abdomen are unremarkable. IMPRESSION: No evidence of pulmonary embolism. Favor bilateral edema. Findings worrisome for pneumonia in the lateral right middle lobe. Reviewed, Interpreted and Dictated by Mazin Jacob III, MD Transcribed by Sherice Mcgill Authenticated and [facility]
[2023-04-26 08:40] LABS: Troponin I < 0.01 ng/ml (0.00-0.034)
--- NOTE | 2023-04-26 08:43 | PC.NURSE ---
Dr. Cary advised he does not want to collect second and third trops
[2023-04-26] MEDS: LACTATED RINGERS 1000ML 1,000 ML 999 ML IV (08:45)
--- NOTE | 2023-04-26 08:53 | PC.NURSE ---
Pt gone to RAD via ambulation
--- NOTE | 2023-04-26 09:09 | PC.NURSE ---
Pt back in room from RAD
[2023-04-26] MEDS: 0.9 % SODIUM CHLORIDE 50 ML VIAL IV (09:19)
[2023-04-26] MEDS: IOPAMIDOL-370 (76%);100ML BOTTLE 70 ML IV (09:19)
[2023-04-26] MEDS: IBUPROFEN 400 MG TABLET 800 MG PO (09:23)
--- NOTE | 2023-04-26 10:00 | PC.NURSE ---
Rounded on pt. No needs voiced at this time. Call light within reach.
[2023-04-26 10:20] LABS: HCG Qualitative, Serum Negative (Negative)
--- NOTE | 2023-04-26 10:28 | PC.NURSE ---
call made to rad for update on CT scan, results being faxed down.
== END 2023-04-26 11:08 | disposition home or self-care (01) ==
PROVIDERS: Emergency Provider Emergency Medicine; PCP Internal Medicine
DX: J18.9 Pneumonia, unspecified organism (principal); R55 Syncope and collapse; R50.9 Fever, unspecified; G43.909 Migraine, unspecified, not intractable, without status migrainosus; E03.9 Hypothyroidism, unspecified; E88.810 Metabolic syndrome; R00.0 Tachycardia, unspecified; Z87.891 Personal history of nicotine dependence
CPT/HCPCS: 71275; 80053; 83605; 84484; 84703; 85025; 85378; 87636; 93005; 96360; 99285; Q9967

== ENCOUNTER 2023-11-23 07:59 | Outpatient (CLI) | payer OTHER, SELFPAY ==
[2023-11-23 08:18] LABS: Basophils # 0.1 K/mm3 (0-0.2); Basophils % 0.7 % (0.1-2.0); Eosinophils # 0.2 K/mm3 (0.0-0.4); Eosinophils % 1.6 % (0.1-12.0); Hematocrit 41.1 % (37.0-47.0); Hemoglobin 12.9 g/dL (12.2-16.2); Lymphocytes # 2.2 K/mm3 (0.7-4.5); Lymphocytes % 22.1 % (10-50); Mean Corpuscular HGB Conc 31.4 g/dL (31.8-35.4); Mean Corpuscular Hemoglobin 26.5 pg (27.0-31.2); Mean Corpuscular Volume 84.4 fl (81-99); Mean Platelet Volume 8.1 fl (7.4-10.4); Monocytes # 0.4 K/mm3 (0.1-1.0); Monocytes % 3.7 % (1.7-9.3); Neutrophils # 7.1 K/mm3 (1.8-7.8); Neutrophils % 71.9 % (37.0-80.0); Platelet Count 362 K/mm3 (142-424); Red Blood Count 4.86 M/mm3 (4.20-5.40); Red Cell Distribution Width 15.2 % (11.5-17.5); White Blood Count 9.9 K/mm3 (4.8-10.8)
[2023-11-23 08:33] LABS: Hemoglobin A1C 4.9 % (4.0-6.0)
[2023-11-23 08:45] LABS: Alanine Aminotransferase 14 U/L (12-78); Albumin Level 3.9 g/dl (3.5-5.0); Albumin/Globulin Ratio 1.1 (1.1-1.8); Alkaline Phosphatase 60 U/L (38-126); Anion Gap 9.4 mEq/L (5-15); Aspartate Amino Transferase 20 U/L (14-36); Bilirubin,Total 0.6 mg/dl (0.2-1.3); Blood Urea Nitrogen 13 mg/dl (7-17); Calcium 9.1 mg/dl (8.4-10.2); Carbon Dioxide 25 mmol/L (22.0-30.0); Chloride 108 mmol/L (98-107); Chol/HDL Ratio 3.3 (1-3.5); Cholesterol 170 mg/dl (140-200); Estimated Glomerular Filt Rate 112 ml/min (>60); GFR (African American) 136 ML/MIN (>60); Globulin 3.5 g/dL (1.3-3.2); Glucose 102 mg/dl (74-100); Glucose,Fasting 102 mg/dl (74-100); HDL Cholesterol 52 mg/dl (40-60); Potassium 4.4 mmoL/L (3.5-5.1); Sodium 138 mmol/L (136-145); Total Protein,Serum 7.4 g/dl (6.3-8.2); Triglycerides 111 mg/dl (30-150); Uric Acid 3.9 mg/dl (2.5-6.2); VLDL Cholesterol 22 mg/dL (0-40)
[2023-11-23 08:56] LABS: Direct LDL Cholesterol 84.56 mg/dL (100-129)
[2023-11-23 09:02] LABS: Free Thyroxine Index 1.8 ug/dL (5.93-13.13); T4 (Thyroxine) 6.9 ug/dl (5.53-11.0); Triiodothryronine (T3) Uptake 26 % (23.5-40.5)
[2023-11-23 09:16] LABS: Thyroid Stimulating Hormone 5.33 uIU/mL (0.465-4.68)
[2023-11-23 09:35] LABS: Vitamin B12 712 pg/mL (239-931)
[2023-11-25 12:10] LABS: Insulin Level Total 17.5 uIU/mL (2.6-24.9)
[2023-11-28 10:43] LABS: Vitamin B6 15.1 ug/L (3.4-65.2)
[2023-12-01 18:42] LABS: Testosterone, Total, LC/MS 17 ng/dL (.)
[2023-12-03 09:22] LABS: 1,25 Dihydroxy Vitamin D 28 pg/mL (.); 1,25-Dihydroxy, Vitamin D-2 <10 pg/mL (.); 1,25-Dihydroxy, Vitamin D-3 28 pg/mL (.)
== END 2023-11-23 23:59 | disposition home or self-care (01) ==
LOC: LAB 08:01
PROVIDERS: PCP Internal Medicine; Visit Provider Obstetrics & Gynecology
DX: Z01.419 Encounter for gynecological examination (general) (routine) without abnormal findings (principal); E88.810 Metabolic syndrome; E04.9 Nontoxic goiter, unspecified; E03.9 Hypothyroidism, unspecified; E66.9 Obesity, unspecified; Z68.34 Body mass index [BMI] 34.0-34.9, adult
CPT/HCPCS: 36415; 80050; 80053; 80061; 82607; 82652; 82947; 83036; 83525; 84207; 84403; 84436; 84443; 84479; 84550; 85025

== ENCOUNTER 2024-05-02 08:32 | Outpatient (CLI) | payer OTHER, SELFPAY ==
[2024-05-02 10:09] LABS: Thyroid Stimulating Hormone 5.24 uIU/mL (0.465-4.68)
== END 2024-05-02 23:59 | disposition home or self-care (01) ==
LOC: LAB 08:33
PROVIDERS: PCP Internal Medicine; Visit Provider Obstetrics & Gynecology
DX: E03.9 Hypothyroidism, unspecified (principal)
CPT/HCPCS: 36415; 84443